=== PATIENT | male | born 1930 | race Caucasian/White ===

== ENCOUNTER 2017-04-06 09:38 | Emergency (ER) | payer MEDICARE, BC ==
[~2017-04-06] VITALS: Ht 175.3 cm; Wt 78.6 kg
[~2017-04-06 09:38] MED LIST: ALBU8.5H4 IH; ALPR0.5T8 PO; AMIO200T57 PO; APIX5TAB3 PO; ATOR20TA66 PO; BISA5TAB10 PO; BUDE0.5A11 IH; CARV3.122 PO; CLOP75TA33 PO; DOCU250C4 PO; FLO0.4C PO; FURO-150 PO; GABA-532 PO; GABA100C PO; HYDR-565 PO; IPRA3AMP IH; L.AC460C PO; LEVO750T46 PO; MELA3TAB PO; MIRT45TA PO; NITR0.4T51 SL; PANT-47 PO; POTA10TA15 PO; PRE5T CORPAK; ROFL500T7 PO; TERB250T4 PO
[2017-04-06] MEDS ORDERED: aspirin 81mg tab.chew PO ONE (10:20)
[2017-04-06] MEDS ORDERED: ipratropium/albuterol 3ml nebule NEB ONE (10:35)
[2017-04-06 10:49] LABS: BASOPHILS % (AUTO) 0.3 % (0-1); EOSINOPHILS # (AUTO) 0.1 X10'3 (0-0.9); EOSINOPHILS % (AUTO) 1.3 % (0-6); HEMATOCRIT 41.3 % (42.0-52.0); HEMOGLOBIN 13.4 g/dl (14.0-17.9); LYMPHOCYTES # (AUTO) 1.7 X10'3 (1.1-4.8); LYMPHOCYTES % (AUTO) 22.4 % (21-51); MEAN CORPUSCULAR HEMOGLOBIN 31.1 PG (27.0-31.0); MEAN CORPUSCULAR HGB CONC 32.4 % (33.0-36.5); MEAN PLATELET VOLUME 6.5 FL (7.4-10.4); MONOCYTES # (AUTO) 0.8 X10'3 (0-0.9); MONOCYTES % (AUTO) 11.3 % (2-12); NEUTROPHILS # (AUTO) 4.8 X10'3 (1.8-7.7); NEUTROPHILS % (AUTO) 64.7 % (42-75); PLATELET COUNT 274 X10'3 (140-440); RED CELL DISTRIBUTION WIDTH 14.8 % (11.5-14.5); WHITE BLOOD COUNT 7.4 X10'3 (4.5-11.0)
[2017-04-06 11:10] LABS: ALANINE AMINOTRANSFERASE 31 U/L (12-78); ALBUMIN 3.6 G/DL (3.4-5.0); ALBUMIN/GLOBULIN RATIO 1.2 (1.1-1.5); ALKALINE PHOSPHATASE 61 IU/L (46-116); ANION GAP 6 (8-16); ASPARTATE AMINO TRANSFERASE 25 U/L (10-37); BILIRUBIN,TOTAL 0.3 MG/DL (0.1-1.0); BLOOD UREA NITROGEN 10 MG/DL (7-18); BUN/CREATININE RATIO 9.7 (5.4-32.0); CALCIUM 9.1 MG/DL (8.5-10.1); CHLORIDE 110 MMOL/L (99-107); CREATININE 1.03 MG/DL (0.60-1.10); GLUCOSE 119 MG/DL (70-104); MAGNESIUM 1.8 MG/DL (1.5-2.4); SODIUM 147 MMOL/L (135-145); TOTAL CARBON DIOXIDE 31.2 MMOL/L (24-32); TOTAL PROTEIN 6.5 G/DL (6.4-8.2); eGFR 68 ML/MIN
[2017-04-06 11:18] LABS: POTASSIUM 2.8 MMOL/L (3.5-5.1)
[2017-04-06] MEDS ORDERED: potassium Cl 10 mEq/100mL bag IV ONE (11:25)
[2017-04-06] MEDS ORDERED: potassium 10mEq/100ml NS w/LIDOcaine (10mg/bag) IV ONE (11:55)
[2017-04-06] MEDS ORDERED: methylPREDNISolone sod succ 125mg/2ml vial IV ONE (12:15)
[2017-04-06] MEDS ORDERED: METH4TAB3 PO (13:14)
[2017-04-06] MEDS: potassium 10mEq/100ml NS w/LIDOcaine (10mg/bag) IV SCH ×2 (13:18→14:15)
[2017-04-06 14:29] VITALS: BP 136/82
== END 2017-04-06 14:32 | disposition home or self-care (01) ==
LOC: ER 09:38
DX: J44.1 Chronic obstructive pulmonary disease with (acute) exacerbation (principal); I25.10 Atherosclerotic heart disease of native coronary artery without angina pectoris; I11.0 Hypertensive heart disease with heart failure; I50.9 Heart failure, unspecified; I25.2 Old myocardial infarction; I48.91 Unspecified atrial fibrillation; G89.29 Other chronic pain; Z87.442 Personal history of urinary calculi; Z87.01 Personal history of pneumonia (recurrent); Z95.5 Presence of coronary angioplasty implant and graft; Z98.890 Other specified postprocedural states; Z79.899 Other long term (current) drug therapy; Z79.01 Long term (current) use of anticoagulants
CPT/HCPCS: 36415; 71045; 80053; 83735; 83880; 84484; 85025; 87502; 87503; 93005; 94640; 94760; 96361; 96374; 96375; 99285; J2270; J2930; J3480

== ENCOUNTER 2017-05-02 10:12 | Inpatient (IN) | payer MEDICARE, BC ==
[~2017-05-02] VITALS: Ht 177.8 cm; Wt 82.7 kg
[~2017-05-02 10:12] MED LIST changes: +METH4TAB3 PO
[2017-05-02] MEDS ORDERED: ipratropium/albuterol 3ml nebule NEB ONE (10:25)
[2017-05-02 10:45] LABS: BASOPHILS % (AUTO) 0.3 % (0-1); EOSINOPHILS # (AUTO) 0.2 X10'3 (0-0.9); EOSINOPHILS % (AUTO) 2.2 % (0-6); HEMATOCRIT 37.9 % (42.0-52.0); HEMOGLOBIN 12.8 g/dl (14.0-17.9); LYMPHOCYTES % (AUTO) 11.9 % (21-51); MEAN CORPUSCULAR HEMOGLOBIN 31.8 PG (27.0-31.0); MEAN CORPUSCULAR HGB CONC 33.9 % (33.0-36.5); MEAN CORPUSCULAR VOLUME 93.8 FL (78-98); MEAN PLATELET VOLUME 6.7 FL (7.4-10.4); MONOCYTES # (AUTO) 0.7 X10'3 (0-0.9); MONOCYTES % (AUTO) 7.9 % (2-12); NEUTROPHILS # (AUTO) 6.8 X10'3 (1.8-7.7); NEUTROPHILS % (AUTO) 77.7 % (42-75); PLATELET COUNT 256 X10'3 (140-440); RED BLOOD COUNT 4.03 X10'6 (4.70-6.10); RED CELL DISTRIBUTION WIDTH 15.1 % (11.5-14.5); WHITE BLOOD COUNT 8.8 X10'3 (4.5-11.0)
[2017-05-02 10:55] LABS: PARTIAL THROMBOPLASTIN TIME 25 SECONDS (22-32); PROTHROMBIN TIME 10.5 SECONDS (9.0-12.0)
[2017-05-02 11:08] LABS: ALANINE AMINOTRANSFERASE 19 U/L (12-78); ALBUMIN 3.4 G/DL (3.4-5.0); ALBUMIN/GLOBULIN RATIO 1.2 (1.1-1.5); ALKALINE PHOSPHATASE 58 IU/L (46-116); ANION GAP 7 (8-16); ASPARTATE AMINO TRANSFERASE 8 U/L (10-37); BILIRUBIN,TOTAL 0.4 MG/DL (0.1-1.0); BLOOD UREA NITROGEN 11 MG/DL (7-18); CALCIUM 8.3 MG/DL (8.5-10.1); CHLORIDE 113 MMOL/L (99-107); GLUCOSE 138 MG/DL (70-104); SODIUM 149 MMOL/L (135-145); TOTAL CARBON DIOXIDE 29.4 MMOL/L (24-32); TOTAL PROTEIN 6.2 G/DL (6.4-8.2); eGFR 71 ML/MIN
[2017-05-02 11:13] LABS: POTASSIUM 2.8 MMOL/L (3.5-5.1)
[2017-05-02] MEDS ORDERED: potassium Cl oral solution 20 MEQ/15 ML PO ONE (11:40)
[2017-05-02] MEDS ORDERED: methylPREDNISolone sod succ 125mg/2ml vial IV ONE (12:05)
[2017-05-02] MEDS ORDERED: levoFLOXACIN-Levaquin 500mg/D5 100 ML IV ONE (12:05)
[2017-05-02] MEDS ORDERED: docusate sod 250mg capsule PO PRN (12:30)
[2017-05-02] MEDS ORDERED: nitroGLYCERIN 0.4mg SUBLingual tab SL PRN (12:30)
[2017-05-02] MEDS ORDERED: bisacodyl 5mg tablet.DR PO PRN (12:30)
[2017-05-02] MEDS ORDERED: albuterol 2.5 MG/3 ML nebule NEB PRN (12:30)
[2017-05-02] MEDS ORDERED: ALPRAZolam 0.5mg tablet PO PRN (12:30)
[2017-05-02] MEDS: furosemide 20 MG/2 ML vial IV SCH (14:23)
[2017-05-02] MEDS: methylPREDNISolone sod succ 125mg/2ml vial IV SCH ×2 (14:25→22:00)
[2017-05-02] MEDS: ipratropium/albuterol 3ml nebule IH SCH ×3 (14:32→19:00)
[2017-05-02] MEDS: HYDROcodone/acetaminophen 10/325mg tab PO PRN (15:22)
[2017-05-02] MEDS ORDERED: HYDROmorphone 1 mg/ml syringe IV PRN (17:35)
[2017-05-02] MEDS ORDERED: magnesium hydroxide 30ml (MOM) UD suspension PO PRN (17:35)
[2017-05-02] MEDS ORDERED: acetaminophen 325mg tablet PO PRN ×2 (17:35)
[2017-05-02] MEDS ORDERED: morphine 2 MG/ML inj. syringe IV PRN (17:35)
[2017-05-02] MEDS ORDERED: HYDROcodone/acetaminophen 5mg/325mg tablet PO PRN (17:35)
[2017-05-02] MEDS ORDERED: ondansetron/PF 4mg/2ml inj IV PRN (17:35)
[2017-05-02] MEDS: pantoprazole 40mg Tablet.DR PO SCH (18:21)
[2017-05-02] MEDS: HYDROmorphone 2mg/ml vial IV PRN ×2 (18:21→23:04)
[2017-05-02] MEDS ORDERED: non-formulary drug (Mirtazapine (Remeron) 1 TAB) PO SCH (21:00)
[2017-05-02] MEDS: mirtazapine 15mg tablet PO SCH (21:58)
[2017-05-02] MEDS: gabapentin 300mg capsule PO SCH (21:59)
[2017-05-02] MEDS: atorvastatin 20mg tablet PO SCH (21:59)
[2017-05-02] MEDS: Melatonin 3mg tablet PO SCH (21:59)
[2017-05-02] MEDS: apixaban 5mg tablet PO SCH (21:59)
[2017-05-02] MEDS: tamsulosin 0.4mg capsule PO SCH (21:59)
[2017-05-02] MEDS: carVEDilol 3.125mg tablet PO SCH (22:00)
[2017-05-02 23:10] VITALS: BP 130/75
[2017-05-02] MEDS: terbinafine 250mg tablet PO SCH (23:50)
[2017-05-02] MEDS: budesonide 0.5mg/2ml UD nebule IH SCH ×2 (23:51→23:52)
[2017-05-03] MEDS: temazepam 15mg capsule PO PRN (00:11)
[2017-05-03] MEDS: methylPREDNISolone sod succ 125mg/2ml vial IV SCH ×4 (02:18→20:31)
[2017-05-03] MEDS: HYDROmorphone 2mg/ml vial IV PRN ×5 (03:16→20:32)
[2017-05-03 06:30] VITALS: BP 141/82
[2017-05-03 06:44] LABS: BASOPHILS % (AUTO) 0 % (0-1); EOSINOPHILS # (AUTO) 0.2 X10'3 (0-0.9); EOSINOPHILS % (AUTO) 1.5 % (0-6); HEMATOCRIT 38.4 % (42.0-52.0); HEMOGLOBIN 12.7 g/dl (14.0-17.9); LYMPHOCYTES # (AUTO) 0.4 X10'3 (1.1-4.8); LYMPHOCYTES % (AUTO) 3.2 % (21-51); MEAN CORPUSCULAR HEMOGLOBIN 31.4 PG (27.0-31.0); MEAN CORPUSCULAR VOLUME 94.9 FL (78-98); MONOCYTES # (AUTO) 0.2 X10'3 (0-0.9); MONOCYTES % (AUTO) 1.6 % (2-12); NEUTROPHILS # (AUTO) 11.5 X10'3 (1.8-7.7); NEUTROPHILS % (AUTO) 93.7 % (42-75); PLATELET COUNT 257 X10'3 (140-440); RED BLOOD COUNT 4.05 X10'6 (4.70-6.10); RED CELL DISTRIBUTION WIDTH 15.1 % (11.5-14.5); WHITE BLOOD COUNT 12.3 X10'3 (4.5-11.0)
[2017-05-03] MEDS: budesonide 0.5mg/2ml UD nebule IH SCH ×2 (06:51→19:28)
[2017-05-03] MEDS: ipratropium/albuterol 3ml nebule IH SCH ×4 (06:51→19:28)
[2017-05-03 07:07] LABS: ALBUMIN 3.2 G/DL (3.4-5.0); ANION GAP 5 (8-16); BLOOD UREA NITROGEN 15 MG/DL (7-18); BUN/CREATININE RATIO 16.7 (5.4-32.0); CALCIUM 8.7 MG/DL (8.5-10.1); CHLORIDE 110 MMOL/L (99-107); GLUCOSE 138 MG/DL (70-104); SODIUM 146 MMOL/L (135-145); TOTAL CARBON DIOXIDE 30.9 MMOL/L (24-32); eGFR 80 ML/MIN
[2017-05-03] MEDS: gabapentin 100mg capsule PO SCH (07:41)
[2017-05-03] MEDS: amiodarone 200mg tablet PO SCH (07:41)
[2017-05-03] MEDS: furosemide 20 MG/2 ML vial IV SCH (07:41)
[2017-05-03] MEDS: clopidogrel 75mg tablet PO SCH (07:41)
[2017-05-03] MEDS: pantoprazole 40mg Tablet.DR PO SCH ×2 (07:41→16:28)
[2017-05-03] MEDS: terbinafine 250mg tablet PO SCH (07:41)
[2017-05-03] MEDS: potassium chloride 10mEq ER tablet PO SCH (07:42)
[2017-05-03] MEDS: apixaban 5mg tablet PO SCH ×2 (07:42→20:30)
[2017-05-03] MEDS: carVEDilol 3.125mg tablet PO SCH ×2 (07:42→20:30)
[2017-05-03] MEDS ORDERED: non-formulary drug (Potassium Chloride 1 TAB) PO SCH (08:00)
[2017-05-03 10:03] VITALS: BP 114/58
[2017-05-03 18:30] VITALS: BP 130/82
[2017-05-03] MEDS: Melatonin 3mg tablet PO SCH (20:30)
[2017-05-03] MEDS: gabapentin 300mg capsule PO SCH (20:30)
[2017-05-03] MEDS: tamsulosin 0.4mg capsule PO SCH (20:30)
[2017-05-03] MEDS: mirtazapine 15mg tablet PO SCH (20:30)
[2017-05-03] MEDS: atorvastatin 20mg tablet PO SCH (20:31)
[2017-05-03] MEDS: HYDROcodone/acetaminophen 10/325mg tab PO PRN (22:11)
[2017-05-03 22:30] VITALS: BP 136/80
[2017-05-04] MEDS: morphine 5 MG/ML injection IV PRN ×5 (00:10→20:39)
[2017-05-04] MEDS: temazepam 15mg capsule PO PRN ×2 (00:13→23:44)
[2017-05-04] MEDS: methylPREDNISolone sod succ 125mg/2ml vial IV SCH ×4 (02:18→20:39)
[2017-05-04] MEDS: HYDROcodone/acetaminophen 10/325mg tab PO PRN ×5 (02:19→23:45)
[2017-05-04 05:00] VITALS: BP 114/66
[2017-05-04 05:51] LABS: BASOPHILS % (AUTO) 0 % (0-1); EOSINOPHILS # (AUTO) 0.3 X10'3 (0-0.9); EOSINOPHILS % (AUTO) 1.6 % (0-6); HEMATOCRIT 38.1 % (42.0-52.0); HEMOGLOBIN 12.7 g/dl (14.0-17.9); LYMPHOCYTES # (AUTO) 0.3 X10'3 (1.1-4.8); LYMPHOCYTES % (AUTO) 1.9 % (21-51); MEAN CORPUSCULAR HEMOGLOBIN 31.9 PG (27.0-31.0); MEAN CORPUSCULAR HGB CONC 33.3 % (33.0-36.5); MEAN CORPUSCULAR VOLUME 95.5 FL (78-98); MEAN PLATELET VOLUME 7.2 FL (7.4-10.4); MONOCYTES # (AUTO) 0.5 X10'3 (0-0.9); MONOCYTES % (AUTO) 3.2 % (2-12); NEUTROPHILS # (AUTO) 15.9 X10'3 (1.8-7.7); NEUTROPHILS % (AUTO) 93.3 % (42-75); PLATELET COUNT 256 X10'3 (140-440); RED BLOOD COUNT 3.98 X10'6 (4.70-6.10); RED CELL DISTRIBUTION WIDTH 15.3 % (11.5-14.5)
[2017-05-04 06:06] LABS: ALBUMIN 3.1 G/DL (3.4-5.0); ANION GAP 7 (8-16); BLOOD UREA NITROGEN 27 MG/DL (7-18); BUN/CREATININE RATIO 24.5 (5.4-32.0); CHLORIDE 108 MMOL/L (99-107); GLUCOSE 158 MG/DL (70-104); POTASSIUM 3.9 MMOL/L (3.5-5.1); SODIUM 145 MMOL/L (135-145); TOTAL CARBON DIOXIDE 30.3 MMOL/L (24-32); eGFR 63 ML/MIN
[2017-05-04] MEDS: terbinafine 250mg tablet PO SCH (07:46)
[2017-05-04] MEDS: furosemide 20 MG/2 ML vial IV SCH (07:46)
[2017-05-04] MEDS: potassium chloride 10mEq ER tablet PO SCH (07:46)
[2017-05-04] MEDS: gabapentin 100mg capsule PO SCH (07:46)
[2017-05-04] MEDS: pantoprazole 40mg Tablet.DR PO SCH ×2 (07:46→16:30)
[2017-05-04] MEDS: budesonide 0.5mg/2ml UD nebule IH SCH ×2 (07:59→20:13)
[2017-05-04] MEDS: ipratropium/albuterol 3ml nebule IH SCH ×4 (08:00→20:18)
[2017-05-04 09:42] VITALS: BP 116/77
[2017-05-04] MEDS: apixaban 5mg tablet PO SCH ×2 (14:19→20:38)
[2017-05-04] MEDS: carVEDilol 3.125mg tablet PO SCH ×2 (14:19→20:38)
[2017-05-04] MEDS: amiodarone 200mg tablet PO SCH (14:19)
[2017-05-04] MEDS: clopidogrel 75mg tablet PO SCH (14:19)
[2017-05-04 18:00] VITALS: BP 137/82
[2017-05-04] MEDS: atorvastatin 20mg tablet PO SCH (20:37)
[2017-05-04] MEDS: mirtazapine 15mg tablet PO SCH (20:38)
[2017-05-04] MEDS: tamsulosin 0.4mg capsule PO SCH (20:38)
[2017-05-04] MEDS: gabapentin 300mg capsule PO SCH (20:38)
[2017-05-04] MEDS: Melatonin 3mg tablet PO SCH (20:38)
[2017-05-04 22:00] VITALS: BP 115/71
[2017-05-05] MEDS: methylPREDNISolone sod succ 125mg/2ml vial IV SCH ×4 (02:03→19:34)
[2017-05-05] MEDS: mag hydrox/Alum hydrox/simeth 30ml oral suspension PO PRN ×3 (02:13→19:33)
[2017-05-05] MEDS: morphine 5 MG/ML injection IV PRN ×4 (02:13→14:11)
[2017-05-05] MEDS: HYDROcodone/acetaminophen 10/325mg tab PO PRN (04:57)
[2017-05-05 05:00] VITALS: BP 125/77
[2017-05-05 06:30] LABS: BASOPHILS % (AUTO) 0 % (0-1); EOSINOPHILS # (AUTO) 0.3 X10'3 (0-0.9); EOSINOPHILS % (AUTO) 1.5 % (0-6); HEMATOCRIT 38.2 % (42.0-52.0); HEMOGLOBIN 12.8 g/dl (14.0-17.9); LYMPHOCYTES # (AUTO) 0.3 X10'3 (1.1-4.8); MEAN CORPUSCULAR HEMOGLOBIN 32.1 PG (27.0-31.0); MEAN CORPUSCULAR HGB CONC 33.7 % (33.0-36.5); MEAN CORPUSCULAR VOLUME 95.3 FL (78-98); MEAN PLATELET VOLUME 7.2 FL (7.4-10.4); MONOCYTES # (AUTO) 0.6 X10'3 (0-0.9); MONOCYTES % (AUTO) 3.4 % (2-12); NEUTROPHILS # (AUTO) 15.2 X10'3 (1.8-7.7); NEUTROPHILS % (AUTO) 93.1 % (42-75); PLATELET COUNT 248 X10'3 (140-440); RED BLOOD COUNT 4.01 X10'6 (4.70-6.10); RED CELL DISTRIBUTION WIDTH 15.4 % (11.5-14.5); WHITE BLOOD COUNT 16.4 X10'3 (4.5-11.0)
[2017-05-05 07:08] LABS: ALBUMIN 3.2 G/DL (3.4-5.0); ANION GAP 7 (8-16); BLOOD UREA NITROGEN 31 MG/DL (7-18); BUN/CREATININE RATIO 25.8 (5.4-32.0); CALCIUM 8.9 MG/DL (8.5-10.1); CHLORIDE 110 MMOL/L (99-107); GLUCOSE 118 MG/DL (70-104); POTASSIUM 4.3 MMOL/L (3.5-5.1); SODIUM 148 MMOL/L (135-145); TOTAL CARBON DIOXIDE 30.9 MMOL/L (24-32); eGFR 57 ML/MIN
[2017-05-05] MEDS: budesonide 0.5mg/2ml UD nebule IH SCH ×2 (07:46→20:09)
[2017-05-05] MEDS: ipratropium/albuterol 3ml nebule IH SCH ×4 (07:46→20:09)
[2017-05-05] MEDS: furosemide 20 MG/2 ML vial IV SCH (09:04)
[2017-05-05] MEDS: pantoprazole 40mg Tablet.DR PO SCH ×2 (09:04→17:49)
[2017-05-05] MEDS: terbinafine 250mg tablet PO SCH (09:05)
[2017-05-05] MEDS: clopidogrel 75mg tablet PO SCH (09:05)
[2017-05-05] MEDS: potassium chloride 10mEq ER tablet PO SCH (09:05)
[2017-05-05] MEDS: gabapentin 100mg capsule PO SCH (09:05)
[2017-05-05] MEDS: apixaban 5mg tablet PO SCH ×2 (09:05→19:34)
[2017-05-05] MEDS: amiodarone 200mg tablet PO SCH (09:05)
[2017-05-05] MEDS: carVEDilol 3.125mg tablet PO SCH ×2 (09:05→19:34)
[2017-05-05 10:00] VITALS: BP 148/86
[2017-05-05] MEDS: morphine 2 MG/ML inj. syringe IV PRN ×2 (17:50→22:28)
[2017-05-05 18:00] VITALS: BP 128/71
[2017-05-05] MEDS: sotalol 80mg tablet PO SCH (19:34)
[2017-05-05] MEDS: Melatonin 3mg tablet PO SCH (21:04)
[2017-05-05] MEDS: atorvastatin 20mg tablet PO SCH (21:04)
[2017-05-05] MEDS: mirtazapine 15mg tablet PO SCH (21:04)
[2017-05-05] MEDS: tamsulosin 0.4mg capsule PO SCH (21:04)
[2017-05-05] MEDS: gabapentin 300mg capsule PO SCH (21:04)
[2017-05-05 22:00] VITALS: BP 143/86
[2017-05-05] MEDS: temazepam 15mg capsule PO PRN (22:32)
[2017-05-06] MEDS: methylPREDNISolone sod succ 125mg/2ml vial IV SCH ×3 (02:18→13:44)
[2017-05-06] MEDS: morphine 2 MG/ML inj. syringe IV PRN ×3 (02:22→11:58)
[2017-05-06 06:20] LABS: BASOPHILS % (AUTO) 0 % (0-1); EOSINOPHILS # (AUTO) 0.2 X10'3 (0-0.9); EOSINOPHILS % (AUTO) 1.6 % (0-6); HEMATOCRIT 37.2 % (42.0-52.0); HEMOGLOBIN 12.5 g/dl (14.0-17.9); LYMPHOCYTES # (AUTO) 0.2 X10'3 (1.1-4.8); LYMPHOCYTES % (AUTO) 1.6 % (21-51); MEAN CORPUSCULAR HEMOGLOBIN 31.9 PG (27.0-31.0); MEAN CORPUSCULAR HGB CONC 33.7 % (33.0-36.5); MEAN CORPUSCULAR VOLUME 94.8 FL (78-98); MEAN PLATELET VOLUME 7.3 FL (7.4-10.4); MONOCYTES # (AUTO) 0.6 X10'3 (0-0.9); MONOCYTES % (AUTO) 4.4 % (2-12); NEUTROPHILS # (AUTO) 12.8 X10'3 (1.8-7.7); NEUTROPHILS % (AUTO) 92.4 % (42-75); PLATELET COUNT 223 X10'3 (140-440); RED BLOOD COUNT 3.92 X10'6 (4.70-6.10); RED CELL DISTRIBUTION WIDTH 15.4 % (11.5-14.5); WHITE BLOOD COUNT 13.9 X10'3 (4.5-11.0)
[2017-05-06 07:10] VITALS: BP 143/86
[2017-05-06 07:36] LABS: ANION GAP 8 (8-16); BLOOD UREA NITROGEN 34 MG/DL (7-18); BUN/CREATININE RATIO 30.9 (5.4-32.0); CALCIUM 8.6 MG/DL (8.5-10.1); CHLORIDE 108 MMOL/L (99-107); GLUCOSE 120 MG/DL (70-104); POTASSIUM 4.3 MMOL/L (3.5-5.1); SODIUM 146 MMOL/L (135-145); TOTAL CARBON DIOXIDE 30.1 MMOL/L (24-32); eGFR 63 ML/MIN
[2017-05-06] MEDS: pantoprazole 40mg Tablet.DR PO SCH (07:59)
[2017-05-06] MEDS: gabapentin 100mg capsule PO SCH (07:59)
[2017-05-06] MEDS: terbinafine 250mg tablet PO SCH (07:59)
[2017-05-06] MEDS: clopidogrel 75mg tablet PO SCH (07:59)
[2017-05-06] MEDS: apixaban 5mg tablet PO SCH (07:59)
[2017-05-06] MEDS: potassium chloride 10mEq ER tablet PO SCH (07:59)
[2017-05-06] MEDS ORDERED: cefTRIAXone 1g/NS 100ml IVPB 100 ML IV SCH (08:00)
[2017-05-06] MEDS: ipratropium/albuterol 3ml nebule IH SCH ×2 (08:22→12:00)
[2017-05-06] MEDS: budesonide 0.5mg/2ml UD nebule IH SCH (08:22)
[2017-05-06] MEDS: carVEDilol 3.125mg tablet PO SCH (11:04)
[2017-05-06] MEDS: sotalol 80mg tablet PO SCH (11:56)
[2017-05-06 12:10] VITALS: BP 125/73
[2017-05-06] MEDS ORDERED: PRED10TA PO (13:02)
[2017-05-06] MEDS ORDERED: LEVO750T21 PO (13:08)
[2017-05-06] MEDS ORDERED: SOTA80TA PO (13:40)
[2017-05-06] MEDS ORDERED: lactobacillus rhamnosus 10,000 MMU CELLS/CAPSULE PO SCH (17:30)
== END 2017-05-06 15:52 | disposition home or self-care (01) | DRG 189 ==
LOC: ER 10:15 → ED HOLD 17:38 → ORTHO 4S 23:10
PROVIDERS: ADMIT Internal Medicine; ATTEND Internal Medicine
DX: J96.21 Acute and chronic respiratory failure with hypoxia (principal); G62.9 Polyneuropathy, unspecified; I11.0 Hypertensive heart disease with heart failure; I48.0 Paroxysmal atrial fibrillation; I49.5 Sick sinus syndrome; J44.0 Chronic obstructive pulmonary disease with (acute) lower respiratory infection; I50.30 Unspecified diastolic (congestive) heart failure; E78.5 Hyperlipidemia, unspecified; J44.1 Chronic obstructive pulmonary disease with (acute) exacerbation; M47.9 Spondylosis, unspecified; J20.9 Acute bronchitis, unspecified; M54.9 Dorsalgia, unspecified; G89.29 Other chronic pain; I25.10 Atherosclerotic heart disease of native coronary artery without angina pectoris; K21.9 Gastro-esophageal reflux disease without esophagitis; N40.0 Benign prostatic hyperplasia without lower urinary tract symptoms; F17.210 Nicotine dependence, cigarettes, uncomplicated; Z79.01 Long term (current) use of anticoagulants; Z79.02 Long term (current) use of antithrombotics/antiplatelets; Z79.899 Other long term (current) drug therapy; Z86.73 Personal history of transient ischemic attack (TIA), and cerebral infarction without residual deficits; Z87.442 Personal history of urinary calculi; Z95.5 Presence of coronary angioplasty implant and graft; Z83.3 Family history of diabetes mellitus; Z82.3 Family history of stroke
CPT/HCPCS: 36415; 71045; 80048; 80053; 83880; 84484; 85025; 85610; 85730; 87070; 87502; 87503; 93005; 94640; 94760; 96365; 96375; 97110; 97116; 97162; 99285; J0696; J1170; J1940; J1956; J2270; J2930; J7626

== ENCOUNTER 2017-05-25 08:59 | Inpatient (IN) | payer MEDICARE, BC ==
[~2017-05-25] VITALS: Ht 175.3 cm; Wt 82.4 kg
[~2017-05-25 08:59] MED LIST changes: -AMIO200T57 PO; -CARV3.122 PO; -LEVO750T46 PO; -MELA3TAB PO; -PRE5T CORPAK; +PRED10TA PO; +SOTA80TA PO
[2017-05-25] MEDS ORDERED: albuterol 2.5 MG/3 ML nebule CONTNEB PRN (09:05)
[2017-05-25] MEDS ORDERED: magnesium 2GM in 50ml NS 50 ML IV ONE (09:05)
[2017-05-25] MEDS ORDERED: ipratropium 0.5 MG/2.5ML nebule IH ONE (09:05)
[2017-05-25] MEDS ORDERED: methylPREDNISolone sod succ 125mg/2ml vial IV ONE ×2 (09:05→20:00)
[2017-05-25] MEDS ORDERED: CefTRIAXone 2gm/NS 100ml IVPB 100 ML IV ONE (09:05)
[2017-05-25 09:28] LABS: BASOPHILS % (AUTO) 0.1 % (0-1); EOSINOPHILS # (AUTO) 0.2 X10'3 (0-0.9); EOSINOPHILS % (AUTO) 2.4 % (0-6); HEMATOCRIT 40.1 % (42.0-52.0); HEMOGLOBIN 13.4 g/dl (14.0-17.9); LYMPHOCYTES # (AUTO) 1.1 X10'3 (1.1-4.8); LYMPHOCYTES % (AUTO) 12.8 % (21-51); MEAN CORPUSCULAR HEMOGLOBIN 32.3 PG (27.0-31.0); MEAN CORPUSCULAR HGB CONC 33.4 % (33.0-36.5); MEAN CORPUSCULAR VOLUME 96.7 FL (78-98); MEAN PLATELET VOLUME 6.9 FL (7.4-10.4); MONOCYTES # (AUTO) 0.7 X10'3 (0-0.9); NEUTROPHILS # (AUTO) 6.5 X10'3 (1.8-7.7); NEUTROPHILS % (AUTO) 76.7 % (42-75); PLATELET COUNT 234 X10'3 (140-440); RED BLOOD COUNT 4.15 X10'6 (4.70-6.10); RED CELL DISTRIBUTION WIDTH 15.7 % (11.5-14.5); WHITE BLOOD COUNT 8.4 X10'3 (4.5-11.0)
[2017-05-25] MEDS ORDERED: LORazepam 2 mg/ml vial IV ONE (09:30)
[2017-05-25 09:40] LABS: PARTIAL THROMBOPLASTIN TIME 25 SECONDS (22-32); PROTHROMBIN TIME 9.9 SECONDS (9.0-12.0)
[2017-05-25] MEDS: morphine 2 MG/ML inj. syringe IV PRN ×3 (09:52→12:12)
[2017-05-25 09:54] LABS: ALANINE AMINOTRANSFERASE 37 U/L (12-78); ALBUMIN 3.4 G/DL (3.4-5.0); ALKALINE PHOSPHATASE 80 IU/L (46-116); ANION GAP 6 (8-16); ASPARTATE AMINO TRANSFERASE 11 U/L (10-37); BILIRUBIN,TOTAL 0.5 MG/DL (0.1-1.0); BLOOD UREA NITROGEN 10 MG/DL (7-18); BUN/CREATININE RATIO 10.8 (5.4-32.0); CALCIUM 9.2 MG/DL (8.5-10.1); CHLORIDE 113 MMOL/L (99-107); CREATININE 0.93 MG/DL (0.60-1.10); GLUCOSE 87 MG/DL (70-104); POTASSIUM 3.5 MMOL/L (3.5-5.1); SODIUM 152 MMOL/L (135-145); TOTAL CARBON DIOXIDE 32.7 MMOL/L (24-32); TOTAL PROTEIN 6.7 G/DL (6.4-8.2); eGFR 77 ML/MIN
[2017-05-25 10:54] LABS: CLARITY,URINE CLEAR (Clear); COLOR,URINE YELLOW (Yellow); GLUCOSE, URINE NEGATIVE (Neg); KETONES,URINE NEGATIVE (Neg); LEUKOCYTE ESTERASE ,URINE NEGATIVE (Neg); NITRITES, URINE NEGATIVE (Neg); OCCULT BLOOD,URINE SMALL (Neg); PH,URINE 5.5 (4.8-8.0); PROTEIN,URINE NEGATIVE (Neg); UROBILINOGEN,URINE 0.2 E.U/dL (0.2-1.0)
[2017-05-25 11:00] LABS: UA COLLECTION TYPE URINAL
[2017-05-25 11:02] LABS: BACTERIA,URINE FEW /HPF (Neg); COARSE GRANULAR CAST 0-3 /LPF (NEGATIVE); MUCUS STRANDS MODERATE /LPF (Neg); RENAL CELLS, URINE FEW /HPF; SQUAMOUS EPITHELIAL CELL,UR FEW /LPF (FEW); WBC,URINE 0-4 /HPF (0-4)
[2017-05-25 14:10] LABS: ABG BASE EXCESS 0.4 mmol/L (-2.0-3.0); ABG HCO3 25.6 mmol/L (22.0-26.0); ABG OXYGEN SATURATION 96.4 % (95-98); ABG PCO2 (T) 43.2 mmHg (35.0-48.0); ALLEN'S TEST Positive; FCOHb 0.4 % (0.5-1.5); FLOW 2 L/min; FMetHb 0.2 % (0.3-1.12); FO2Hb 95.8 % (94-100); TOTAL HEMOGLOBIN 13.3 G/dl (14.0-18.0)
[2017-05-25] MEDS ORDERED: magnesium hydroxide 30ml (MOM) UD suspension PO PRN (14:35)
[2017-05-25] MEDS ORDERED: mag hydrox/Alum hydrox/simeth 30ml oral suspension PO PRN (14:35)
[2017-05-25] MEDS ORDERED: potassium Cl 40MEQ/NS 500ml 500 ML IV PRN ×2 (14:35)
[2017-05-25] MEDS ORDERED: guaiFENesin/codeine phos 10ml UD oral syrup PO PRN (14:35)
[2017-05-25] MEDS ORDERED: acetaminophen 325mg tablet PO PRN (14:35)
[2017-05-25] MEDS ORDERED: magnesium 4gm in 100ml NS 100 ML IV PRN (14:35)
[2017-05-25] MEDS ORDERED: magnesium 2GM in 50ml NS 50 ML IV PRN (14:35)
[2017-05-25] MEDS ORDERED: ondansetron/PF 4mg/2ml inj IV PRN (14:35)
[2017-05-25] MEDS ORDERED: HYDROcodone/acetaminophen 5mg/325mg tablet PO PRN (14:35)
[2017-05-25] MEDS ORDERED: potassium Cl 20 mEq SR tablet PO PRN (14:35)
[2017-05-25] MEDS ORDERED: magnesium Cl slow-release 64mg tablet PO PRN (14:35)
[2017-05-25] MEDS ORDERED: docusate sod 250mg capsule PO PRN (14:45)
[2017-05-25] MEDS ORDERED: bisacodyl 5mg tablet.DR PO PRN (14:45)
[2017-05-25] MEDS ORDERED: nitroGLYCERIN 0.4mg SUBLingual tab SL PRN (14:45)
[2017-05-25] MEDS ORDERED: albuterol 2.5 MG/3 ML nebule NEB PRN (14:50)
[2017-05-25] MEDS: sodium chloride 0.45% 1,000 ML IV SCH ×2 (15:32→21:41)
[2017-05-25] MEDS: ipratropium/albuterol 3ml nebule IH SCH ×2 (16:53→21:28)
[2017-05-25] MEDS ORDERED: doxycycline hyclate 100mg tablet.DR PO SCH (17:30)
[2017-05-25 18:20] VITALS: BP 118/65
[2017-05-25] MEDS: pantoprazole 40mg Tablet.DR PO SCH (18:23)
[2017-05-25] MEDS: lactobacillus rhamnosus 10,000 MMU CELLS/CAPSULE PO SCH (18:23)
[2017-05-25] MEDS: HYDROmorphone inj. 0.5 MG/0.5 ML DISP.SYRIN IV PRN (18:25)
[2017-05-25] MEDS: HYDROcodone/acetaminophen 10/325mg tab PO PRN (21:01)
[2017-05-25] MEDS: atorvastatin 20mg tablet PO SCH (21:02)
[2017-05-25] MEDS: tamsulosin 0.4mg capsule PO SCH (21:02)
[2017-05-25] MEDS: mirtazapine 15mg tablet PO SCH (21:02)
[2017-05-25] MEDS: gabapentin 300mg capsule PO SCH (21:02)
[2017-05-25] MEDS: roflumilast 500mcg tablet PO SCH (21:41)
[2017-05-25] MEDS: apixaban 5mg tablet PO SCH (21:42)
[2017-05-25] MEDS: ALPRAZolam 0.5mg tablet PO PRN (21:53)
[2017-05-26] MEDS: HYDROmorphone inj. 0.5 MG/0.5 ML DISP.SYRIN IV PRN ×6 (00:14→23:37)
[2017-05-26 00:30] VITALS: BP 133/69
[2017-05-26] MEDS ORDERED: piperacillin-tazo 2.25gm/50ml 50 ML IV ONE (02:46)
[2017-05-26] MEDS: HYDROcodone/acetaminophen 10/325mg tab PO PRN ×2 (02:48→21:13)
[2017-05-26] MEDS ORDERED: vancomycin/NS 1 GM ADD-VANTAGE 250 ML IV SCH (04:00)
[2017-05-26] MEDS: piperacillin-tazo 2.25gm/50ml 50 ML IV SCH ×2 (04:12→12:15)
[2017-05-26] MEDS: sodium chloride 0.45% 1,000 ML IV SCH ×4 (04:17→23:36)
[2017-05-26 05:30] LABS: BASOPHILS % (AUTO) 0 % (0-1); EOSINOPHILS # (AUTO) 0.1 X10'3 (0-0.9); EOSINOPHILS % (AUTO) 1.2 % (0-6); HEMOGLOBIN 11.2 g/dl (14.0-17.9); LYMPHOCYTES # (AUTO) 0.4 X10'3 (1.1-4.8); LYMPHOCYTES % (AUTO) 6.3 % (21-51); MEAN CORPUSCULAR HEMOGLOBIN 31.9 PG (27.0-31.0); MEAN CORPUSCULAR HGB CONC 33.9 % (33.0-36.5); MEAN CORPUSCULAR VOLUME 94.1 FL (78-98); MEAN PLATELET VOLUME 7.5 FL (7.4-10.4); MONOCYTES # (AUTO) 0.1 X10'3 (0-0.9); MONOCYTES % (AUTO) 1.6 % (2-12); NEUTROPHILS # (AUTO) 5.9 X10'3 (1.8-7.7); NEUTROPHILS % (AUTO) 90.9 % (42-75); PLATELET COUNT 211 X10'3 (140-440); WHITE BLOOD COUNT 6.5 X10'3 (4.5-11.0)
[2017-05-26 06:20] LABS: ALBUMIN 2.7 G/DL (3.4-5.0); ANION GAP 7 (8-16); BLOOD UREA NITROGEN 15 MG/DL (7-18); BUN/CREATININE RATIO 18.8 (5.4-32.0); CALCIUM 8.7 MG/DL (8.5-10.1); CHLORIDE 110 MMOL/L (99-107); GLUCOSE 120 MG/DL (70-104); PHOSPHORUS 2.8 MG/DL (2.3-4.5); POTASSIUM 3.9 MMOL/L (3.5-5.1); SODIUM 145 MMOL/L (135-145); TOTAL CARBON DIOXIDE 27.7 MMOL/L (24-32); eGFR > 90 ML/MIN
[2017-05-26] MEDS: ipratropium/albuterol 3ml nebule IH SCH ×4 (07:03→21:00)
[2017-05-26] MEDS: K and/or MAG REPLACEMENT MC SCH (07:47)
[2017-05-26 07:52] VITALS: BP 149/77
[2017-05-26] MEDS: gabapentin 100mg capsule PO SCH (07:55)
[2017-05-26] MEDS: pantoprazole 40mg Tablet.DR PO SCH ×2 (07:55→15:31)
[2017-05-26] MEDS: lactobacillus rhamnosus 10,000 MMU CELLS/CAPSULE PO SCH ×2 (07:55→15:32)
[2017-05-26] MEDS: apixaban 5mg tablet PO SCH ×2 (07:56→20:21)
[2017-05-26] MEDS: clopidogrel 75mg tablet PO SCH (07:56)
[2017-05-26] MEDS: furosemide 20MG tablet PO SCH (07:56)
[2017-05-26] MEDS ORDERED: clindamycin 600mg/D5W 50ml 50 ML IV SCH (08:00)
[2017-05-26 11:30] VITALS: BP 135/74
[2017-05-26] MEDS ORDERED: vancomycin inj 1,250 MG in normal saline 250ml IV soln 250 ML IV SCH (16:00)
[2017-05-26 19:00] VITALS: BP 115/62
[2017-05-26] MEDS: doxycycline hyclate 100mg tablet.DR PO SCH (19:13)
[2017-05-26] MEDS: piperacillin/tazo 3.375gm/50ml 50 ML IV SCH (20:22)
[2017-05-26] MEDS: mirtazapine 15mg tablet PO SCH (21:05)
[2017-05-26] MEDS: atorvastatin 20mg tablet PO SCH (21:05)
[2017-05-26] MEDS: gabapentin 300mg capsule PO SCH (21:05)
[2017-05-26] MEDS: roflumilast 500mcg tablet PO SCH (21:05)
[2017-05-26] MEDS: tamsulosin 0.4mg capsule PO SCH (21:05)
[2017-05-26] MEDS: ALPRAZolam 0.5mg tablet PO PRN (21:13)
[2017-05-27] VITALS: BP 108/59
[2017-05-27] MEDS: piperacillin/tazo 3.375gm/50ml 50 ML IV SCH ×4 (02:25→20:34)
[2017-05-27] MEDS: vancomycin inj 1,250 MG in normal saline 250ml IV soln 250 ML IV SCH ×2 (03:39→15:52)
[2017-05-27] MEDS: HYDROmorphone inj. 0.5 MG/0.5 ML DISP.SYRIN IV PRN ×4 (03:39→20:33)
[2017-05-27 05:58] LABS: BASOPHILS % (AUTO) 0.2 % (0-1); EOSINOPHILS # (AUTO) 0.1 X10'3 (0-0.9); EOSINOPHILS % (AUTO) 1.8 % (0-6); HEMATOCRIT 32.4 % (42.0-52.0); LYMPHOCYTES % (AUTO) 13.8 % (21-51); MEAN CORPUSCULAR HEMOGLOBIN 32.1 PG (27.0-31.0); MEAN CORPUSCULAR VOLUME 94.5 FL (78-98); MONOCYTES # (AUTO) 0.8 X10'3 (0-0.9); MONOCYTES % (AUTO) 10.7 % (2-12); NEUTROPHILS # (AUTO) 5.5 X10'3 (1.8-7.7); NEUTROPHILS % (AUTO) 73.5 % (42-75); PLATELET COUNT 224 X10'3 (140-440); RED BLOOD COUNT 3.43 X10'6 (4.70-6.10); RED CELL DISTRIBUTION WIDTH 15.6 % (11.5-14.5); WHITE BLOOD COUNT 7.5 X10'3 (4.5-11.0)
[2017-05-27 06:21] LABS: ALBUMIN 2.6 G/DL (3.4-5.0); ANION GAP 8 (8-16); BLOOD UREA NITROGEN 17 MG/DL (7-18); BUN/CREATININE RATIO 18.5 (5.4-32.0); C-REACTIVE PROTEIN 0.42 MG/DL (0.0-0.5); CALCIUM 8.3 MG/DL (8.5-10.1); CHLORIDE 112 MMOL/L (99-107); CREATININE 0.92 MG/DL (0.60-1.10); GLUCOSE 81 MG/DL (70-104); MAGNESIUM 1.9 MG/DL (1.5-2.4); PHOSPHORUS 3.1 MG/DL (2.3-4.5); POTASSIUM 3.1 MMOL/L (3.5-5.1); SODIUM 148 MMOL/L (135-145); TOTAL CARBON DIOXIDE 27.6 MMOL/L (24-32); eGFR 78 ML/MIN
[2017-05-27] MEDS: sodium chloride 0.45% 1,000 ML IV SCH ×3 (06:32→19:52)
[2017-05-27] MEDS: ipratropium/albuterol 3ml nebule IH SCH ×3 (07:05→20:54)
[2017-05-27 07:18] VITALS: BP 127/73
[2017-05-27] MEDS: doxycycline hyclate 100mg tablet.DR PO SCH (07:31)
[2017-05-27] MEDS: clopidogrel 75mg tablet PO SCH (07:31)
[2017-05-27] MEDS: pantoprazole 40mg Tablet.DR PO SCH ×2 (07:31→16:36)
[2017-05-27] MEDS: lactobacillus rhamnosus 10,000 MMU CELLS/CAPSULE PO SCH ×2 (07:31→16:36)
[2017-05-27] MEDS: furosemide 20MG tablet PO SCH (07:31)
[2017-05-27] MEDS: gabapentin 100mg capsule PO SCH (07:32)
[2017-05-27] MEDS: apixaban 5mg tablet PO SCH ×2 (07:32→20:28)
[2017-05-27] MEDS: HYDROcodone/acetaminophen 10/325mg tab PO PRN ×3 (07:32→21:24)
[2017-05-27] MEDS ORDERED: vancomycin/NS 1 GM ADD-VANTAGE 250 ML IV SCH (08:00)
[2017-05-27] MEDS: K and/or MAG REPLACEMENT MC SCH ×2 (08:00→08:40)
[2017-05-27] MEDS ORDERED: magnesium Cl slow-release 64mg tablet PO PRN (08:40)
[2017-05-27] MEDS ORDERED: magnesium 2GM in 50ml NS 50 ML IV PRN (08:40)
[2017-05-27] MEDS ORDERED: potassium Cl 40MEQ/NS 500ml 500 ML IV PRN ×2 (08:40)
[2017-05-27] MEDS ORDERED: magnesium 4gm in 100ml NS 100 ML IV PRN (08:40)
[2017-05-27] MEDS ORDERED: potassium Cl 20 mEq SR tablet PO PRN (08:40)
[2017-05-27] MEDS ORDERED: LORazepam 1 MG tablet PO ONE (11:55)
[2017-05-27 12:04] VITALS: BP 120/72
[2017-05-27] MEDS: potassium Cl 20 mEq SR tablet PO PRN ×3 (12:59→21:28)
[2017-05-27 18:50] VITALS: BP 134/69
[2017-05-27] MEDS: tamsulosin 0.4mg capsule PO SCH (20:28)
[2017-05-27] MEDS: roflumilast 500mcg tablet PO SCH (20:28)
[2017-05-27] MEDS: atorvastatin 20mg tablet PO SCH (20:28)
[2017-05-27] MEDS: gabapentin 300mg capsule PO SCH (20:28)
[2017-05-27] MEDS: mirtazapine 15mg tablet PO SCH (20:29)
[2017-05-27] MEDS: diatr meglu/diatrizoate 30ml oral sol.-(3 dose) bottle PO SCH (22:30)
[2017-05-27] MEDS: pantoprazole 40 MG vial IV SCH (22:45)
[2017-05-28] VITALS: BP 115/62
[2017-05-28] MEDS: HYDROmorphone inj. 0.5 MG/0.5 ML DISP.SYRIN IV PRN ×5 (02:41→20:51)
[2017-05-28] MEDS: piperacillin/tazo 3.375gm/50ml 50 ML IV SCH ×4 (02:41→20:47)
[2017-05-28] MEDS ORDERED: VANCOMYCIN LEVEL IV ONE (03:30)
[2017-05-28] MEDS: HYDROcodone/acetaminophen 10/325mg tab PO PRN ×4 (03:43→22:59)
[2017-05-28 04:00] LABS: BASOPHILS % (AUTO) 0.3 % (0-1); EOSINOPHILS # (AUTO) 0.2 X10'3 (0-0.9); EOSINOPHILS % (AUTO) 2.7 % (0-6); HEMATOCRIT 30.8 % (42.0-52.0); HEMOGLOBIN 10.5 g/dl (14.0-17.9); LYMPHOCYTES # (AUTO) 1.1 X10'3 (1.1-4.8); LYMPHOCYTES % (AUTO) 17.6 % (21-51); MEAN CORPUSCULAR HEMOGLOBIN 32.6 PG (27.0-31.0); MEAN CORPUSCULAR HGB CONC 34.2 % (33.0-36.5); MEAN CORPUSCULAR VOLUME 95.3 FL (78-98); MEAN PLATELET VOLUME 6.6 FL (7.4-10.4); MONOCYTES # (AUTO) 0.7 X10'3 (0-0.9); MONOCYTES % (AUTO) 11.9 % (2-12); NEUTROPHILS # (AUTO) 4.1 X10'3 (1.8-7.7); NEUTROPHILS % (AUTO) 67.5 % (42-75); PLATELET COUNT 231 X10'3 (140-440); RED BLOOD COUNT 3.24 X10'6 (4.70-6.10); RED CELL DISTRIBUTION WIDTH 15.7 % (11.5-14.5); WHITE BLOOD COUNT 6.1 X10'3 (4.5-11.0)
[2017-05-28] MEDS: vancomycin inj 1,250 MG in normal saline 250ml IV soln 250 ML IV SCH (04:05)
[2017-05-28 04:16] LABS: ALBUMIN 2.5 G/DL (3.4-5.0); ANION GAP 7 (8-16); BLOOD UREA NITROGEN 12 MG/DL (7-18); BUN/CREATININE RATIO 13.6 (5.4-32.0); CHLORIDE 116 MMOL/L (99-107); CREATININE 0.88 MG/DL (0.60-1.10); GLUCOSE 84 MG/DL (70-104); MAGNESIUM 1.8 MG/DL (1.5-2.4); PHOSPHORUS 3.1 MG/DL (2.3-4.5); POTASSIUM 3.4 MMOL/L (3.5-5.1); SODIUM 150 MMOL/L (135-145); TOTAL CARBON DIOXIDE 27.5 MMOL/L (24-32); VANCOMYCIN,TROUGH 19.3 UG/ML (6.0-14.0); eGFR 82 ML/MIN
[2017-05-28] MEDS ORDERED: diatr meglu/diatrizoate 30ml oral sol.-(3 dose) bottle PO SCH (07:00)
[2017-05-28] MEDS: ipratropium/albuterol 3ml nebule IH SCH ×4 (07:11→20:50)
[2017-05-28 07:20] VITALS: BP 122/68
[2017-05-28] MEDS: pantoprazole 40 MG vial IV SCH (07:35)
[2017-05-28] MEDS: diatr meglu/diatrizoate 30ml oral sol.-(3 dose) bottle PO SCH ×2 (07:35→10:44)
[2017-05-28] MEDS: lactobacillus rhamnosus 10,000 MMU CELLS/CAPSULE PO SCH ×2 (07:36→15:17)
[2017-05-28] MEDS: furosemide 20MG tablet PO SCH (07:36)
[2017-05-28] MEDS: gabapentin 100mg capsule PO SCH (07:36)
[2017-05-28] MEDS: potassium Cl 20 mEq SR tablet PO PRN ×2 (07:36→15:17)
[2017-05-28] MEDS: K and/or MAG REPLACEMENT MC SCH ×2 (08:00)
[2017-05-28] MEDS ORDERED: LORazepam 1 MG tablet PO ONE (10:35)
[2017-05-28] MEDS ORDERED: iohexol 300mg/ml 100ml inj. ONE (10:40)
[2017-05-28 11:34] VITALS: BP 136/77
[2017-05-28] MEDS: apixaban 5mg tablet PO SCH ×2 (11:47→20:47)
[2017-05-28] MEDS: clopidogrel 75mg tablet PO SCH (11:47)
[2017-05-28 18:50] VITALS: BP 120/64
[2017-05-28] MEDS: atorvastatin 20mg tablet PO SCH (20:48)
[2017-05-28] MEDS: roflumilast 500mcg tablet PO SCH (20:48)
[2017-05-28] MEDS: mirtazapine 15mg tablet PO SCH (20:48)
[2017-05-28] MEDS: gabapentin 300mg capsule PO SCH (20:48)
[2017-05-28] MEDS: tamsulosin 0.4mg capsule PO SCH (20:55)
[2017-05-29] VITALS: BP 133/67
[2017-05-29] MEDS: HYDROmorphone inj. 0.5 MG/0.5 ML DISP.SYRIN IV PRN ×4 (00:36→16:04)
[2017-05-29] MEDS: piperacillin/tazo 3.375gm/50ml 50 ML IV SCH ×3 (01:39→13:04)
[2017-05-29 05:38] LABS: BASOPHILS % (AUTO) 0.3 % (0-1); EOSINOPHILS # (AUTO) 0.2 X10'3 (0-0.9); EOSINOPHILS % (AUTO) 3.3 % (0-6); HEMATOCRIT 32.1 % (42.0-52.0); HEMOGLOBIN 10.9 g/dl (14.0-17.9); LYMPHOCYTES % (AUTO) 16.8 % (21-51); MEAN CORPUSCULAR HEMOGLOBIN 32.4 PG (27.0-31.0); MEAN CORPUSCULAR HGB CONC 34.1 % (33.0-36.5); MEAN CORPUSCULAR VOLUME 94.9 FL (78-98); MEAN PLATELET VOLUME 6.7 FL (7.4-10.4); MONOCYTES # (AUTO) 0.8 X10'3 (0-0.9); MONOCYTES % (AUTO) 13.7 % (2-12); NEUTROPHILS # (AUTO) 3.8 X10'3 (1.8-7.7); NEUTROPHILS % (AUTO) 65.9 % (42-75); PLATELET COUNT 241 X10'3 (140-440); RED BLOOD COUNT 3.38 X10'6 (4.70-6.10); RED CELL DISTRIBUTION WIDTH 15.4 % (11.5-14.5); WHITE BLOOD COUNT 5.7 X10'3 (4.5-11.0)
[2017-05-29 06:32] LABS: ALBUMIN 2.8 G/DL (3.4-5.0); ANION GAP 10 (8-16); BLOOD UREA NITROGEN 8 MG/DL (7-18); BUN/CREATININE RATIO 8.4 (5.4-32.0); CALCIUM 8.3 MG/DL (8.5-10.1); CHLORIDE 113 MMOL/L (99-107); CREATININE 0.95 MG/DL (0.60-1.10); GLUCOSE 93 MG/DL (70-104); MAGNESIUM 1.8 MG/DL (1.5-2.4); PHOSPHORUS 2.8 MG/DL (2.3-4.5); POTASSIUM 3.2 MMOL/L (3.5-5.1); SODIUM 151 MMOL/L (135-145); TOTAL CARBON DIOXIDE 27.9 MMOL/L (24-32); eGFR 75 ML/MIN
[2017-05-29 07:09] VITALS: BP 123/75
[2017-05-29] MEDS: pantoprazole 40mg Tablet.DR PO SCH (07:29)
[2017-05-29] MEDS: clopidogrel 75mg tablet PO SCH (07:29)
[2017-05-29] MEDS: apixaban 5mg tablet PO SCH ×2 (07:29→20:44)
[2017-05-29] MEDS: lactobacillus rhamnosus 10,000 MMU CELLS/CAPSULE PO SCH ×2 (07:29→16:59)
[2017-05-29] MEDS: potassium Cl 20 mEq SR tablet PO PRN ×3 (07:30→17:06)
[2017-05-29] MEDS: HYDROcodone/acetaminophen 10/325mg tab PO PRN (07:30)
[2017-05-29] MEDS: furosemide 20MG tablet PO SCH (07:30)
[2017-05-29] MEDS: gabapentin 100mg capsule PO SCH (07:31)
[2017-05-29] MEDS: K and/or MAG REPLACEMENT MC SCH ×2 (07:59→08:00)
[2017-05-29 08:00] VITALS: BP 123/75
[2017-05-29] MEDS: ipratropium/albuterol 3ml nebule IH SCH ×2 (08:08→12:06)
[2017-05-29] MEDS ORDERED: ALPRAZolam 0.25mg tablet PO ONE (10:40)
[2017-05-29] MEDS ORDERED: ketorolac trometh. 30mg/ml inj. IV PRN (10:50)
[2017-05-29 11:00] VITALS: BP 122/67
[2017-05-29] MEDS: ipratropium/albuterol 3ml nebule NEB SCH ×2 (15:00→19:03)
[2017-05-29 18:40] VITALS: BP 114/60
[2017-05-29] MEDS: ampicillin inj 2 GM in normal saline 100ml IV soln 100 ML IV SCH (20:44)
[2017-05-29] MEDS: gabapentin 300mg capsule PO SCH (20:45)
[2017-05-29] MEDS: tamsulosin 0.4mg capsule PO SCH (20:45)
[2017-05-29] MEDS: roflumilast 500mcg tablet PO SCH (20:45)
[2017-05-29] MEDS: atorvastatin 20mg tablet PO SCH (20:45)
[2017-05-29] MEDS: mirtazapine 15mg tablet PO SCH (20:56)
[2017-05-30] VITALS: BP 114/60
[2017-05-30] MEDS: ampicillin inj 2 GM in normal saline 100ml IV soln 100 ML IV SCH ×2 (02:14→07:16)
[2017-05-30 06:06] LABS: BASOPHILS % (AUTO) 0.2 % (0-1); EOSINOPHILS # (AUTO) 0.2 X10'3 (0-0.9); EOSINOPHILS % (AUTO) 3.1 % (0-6); HEMATOCRIT 30.9 % (42.0-52.0); HEMOGLOBIN 10.5 g/dl (14.0-17.9); LYMPHOCYTES # (AUTO) 0.7 X10'3 (1.1-4.8); LYMPHOCYTES % (AUTO) 13.3 % (21-51); MEAN CORPUSCULAR HEMOGLOBIN 32.1 PG (27.0-31.0); MEAN CORPUSCULAR HGB CONC 33.9 % (33.0-36.5); MEAN CORPUSCULAR VOLUME 94.7 FL (78-98); MONOCYTES # (AUTO) 0.7 X10'3 (0-0.9); MONOCYTES % (AUTO) 13.1 % (2-12); NEUTROPHILS # (AUTO) 3.9 X10'3 (1.8-7.7); NEUTROPHILS % (AUTO) 70.3 % (42-75); PLATELET COUNT 235 X10'3 (140-440); RED BLOOD COUNT 3.27 X10'6 (4.70-6.10); RED CELL DISTRIBUTION WIDTH 16.2 % (11.5-14.5); WHITE BLOOD COUNT 5.6 X10'3 (4.5-11.0)
[2017-05-30 06:21] LABS: ALBUMIN 2.7 G/DL (3.4-5.0); ANION GAP 8 (8-16); BLOOD UREA NITROGEN 8 MG/DL (7-18); BUN/CREATININE RATIO 8.4 (5.4-32.0); CALCIUM 8.5 MG/DL (8.5-10.1); CHLORIDE 113 MMOL/L (99-107); CREATININE 0.95 MG/DL (0.60-1.10); GLUCOSE 88 MG/DL (70-104); MAGNESIUM 1.9 MG/DL (1.5-2.4); PHOSPHORUS 2.1 MG/DL (2.3-4.5); POTASSIUM 3.8 MMOL/L (3.5-5.1); SODIUM 150 MMOL/L (135-145); TOTAL CARBON DIOXIDE 29.4 MMOL/L (24-32); eGFR 75 ML/MIN
[2017-05-30 07:02] VITALS: BP 118/67
[2017-05-30] MEDS: ipratropium/albuterol 3ml nebule NEB SCH ×3 (07:13→14:32)
[2017-05-30] MEDS: pantoprazole 40mg Tablet.DR PO SCH (07:16)
[2017-05-30] MEDS: furosemide 20MG tablet PO SCH (07:16)
[2017-05-30] MEDS: lactobacillus rhamnosus 10,000 MMU CELLS/CAPSULE PO SCH ×2 (07:16→16:36)
[2017-05-30] MEDS: clopidogrel 75mg tablet PO SCH (07:16)
[2017-05-30] MEDS: apixaban 5mg tablet PO SCH ×2 (07:16→19:45)
[2017-05-30] MEDS: gabapentin 100mg capsule PO SCH (07:16)
[2017-05-30] MEDS: K and/or MAG REPLACEMENT MC SCH ×2 (07:17→07:18)
[2017-05-30] MEDS: HYDROcodone/acetaminophen 10/325mg tab PO PRN ×3 (07:17→16:36)
[2017-05-30] MEDS ORDERED: oxyCODONE SR 10mg (sust. release) tab PO PRN (08:30)
[2017-05-30] MEDS ORDERED: oxyCODONE IR 5mg (immed. release) tablet PO PRN (08:36)
[2017-05-30] MEDS ORDERED: loperamide 2mg capsule PO PRN (09:05)
[2017-05-30] MEDS ORDERED: nystatin 500,000 unit/5ML UD oral suspension PO SCH (09:05)
[2017-05-30] MEDS ORDERED: HYDROmorphone inj. 0.5 MG/0.5 ML DISP.SYRIN IV PRN (09:05)
[2017-05-30] MEDS: fluconazole 100mg tablet PO SCH (10:39)
[2017-05-30] MEDS: piperacillin/tazo 3.375gm/50ml 50 ML IV SCH ×3 (10:39→19:45)
[2017-05-30] MEDS: methylPREDNISolone sod succ 125mg/2ml vial IV SCH ×2 (10:39→19:47)
[2017-05-30 11:00] VITALS: BP 125/63
[2017-05-30] MEDS ORDERED: sodium phosphate inj. 15 MMOL in dextrose 5%-water 150 ML IV PRN (11:36)
[2017-05-30] MEDS ORDERED: sodium phosphate inj. 30 MMOL in dextrose 5%-water 250 ML IV PRN (11:36)
[2017-05-30] MEDS ORDERED: Neutra Phos packet PO PRN (11:40)
[2017-05-30] MEDS: sodium chloride 0.45% 1,000 ML IV SCH ×2 (13:14→22:30)
[2017-05-30 19:30] VITALS: BP 112/61
[2017-05-30] MEDS: morphine 4 MG/ML inj SYRINge IV PRN (20:06)
[2017-05-30] MEDS: atorvastatin 20mg tablet PO SCH (22:19)
[2017-05-30] MEDS: mirtazapine 15mg tablet PO SCH (22:19)
[2017-05-30] MEDS: tamsulosin 0.4mg capsule PO SCH (22:19)
[2017-05-30] MEDS: roflumilast 500mcg tablet PO SCH (22:19)
[2017-05-30] MEDS: gabapentin 300mg capsule PO SCH (22:20)
[2017-05-31] VITALS: BP 125/62
[2017-05-31] MEDS: sodium chloride 0.45% 1,000 ML IV SCH ×2 (01:15→13:56)
[2017-05-31] MEDS: HYDROcodone/acetaminophen 10/325mg tab PO PRN ×2 (01:21→12:22)
[2017-05-31] MEDS: piperacillin/tazo 3.375gm/50ml 50 ML IV SCH ×3 (02:13→13:50)
[2017-05-31] MEDS: morphine 4 MG/ML inj SYRINge IV PRN ×2 (03:19→08:30)
[2017-05-31] MEDS: ipratropium/albuterol 3ml nebule NEB SCH ×4 (04:52→15:22)
[2017-05-31 07:00] VITALS: BP 102/53
[2017-05-31] MEDS: K and/or MAG REPLACEMENT MC SCH (08:00)
[2017-05-31] MEDS: methylPREDNISolone sod succ 125mg/2ml vial IV SCH (08:16)
[2017-05-31] MEDS: clopidogrel 75mg tablet PO SCH (08:16)
[2017-05-31] MEDS: lactobacillus rhamnosus 10,000 MMU CELLS/CAPSULE PO SCH (08:17)
[2017-05-31] MEDS: furosemide 20MG tablet PO SCH (08:17)
[2017-05-31] MEDS: gabapentin 100mg capsule PO SCH (08:17)
[2017-05-31] MEDS: pantoprazole 40mg Tablet.DR PO SCH (08:17)
[2017-05-31] MEDS: fluconazole 100mg tablet PO SCH (08:18)
[2017-05-31] MEDS: apixaban 5mg tablet PO SCH (08:18)
[2017-05-31 11:00] VITALS: BP 107/54
[2017-05-31] MEDS: ALPRAZolam 0.5mg tablet PO PRN (16:29)
== END 2017-05-31 17:14 | DRG 871 ==
LOC: ER 08:59 → ED HOLD 14:32 → EDBEDREQ 17:07 → MED 3N 18:05 → UNDODISIN 05-30 14:00
PROVIDERS: ADMIT Internal Medicine Nephrology; ATTEND Internal Medicine
PROC: BW211ZZ Computerized Tomography (CT Scan) of Abdomen and Pelvis using Low Osmolar Contrast (ICD-10-PCS; principal; 2017-05-28)
DX: A41.81 Sepsis due to Enterococcus (principal); J96.20 Acute and chronic respiratory failure, unspecified whether with hypoxia or hypercapnia; B37.0 Candidal stomatitis; E87.0 Hyperosmolality and hypernatremia; I50.32 Chronic diastolic (congestive) heart failure; J44.0 Chronic obstructive pulmonary disease with (acute) lower respiratory infection; J44.1 Chronic obstructive pulmonary disease with (acute) exacerbation; E87.1 Hypo-osmolality and hyponatremia; A09 Infectious gastroenteritis and colitis, unspecified; I11.0 Hypertensive heart disease with heart failure; I48.2 Chronic atrial fibrillation; K20.9 Esophagitis, unspecified; M85.80 Other specified disorders of bone density and structure, unspecified site; E78.5 Hyperlipidemia, unspecified; G89.29 Other chronic pain; I08.1 Rheumatic disorders of both mitral and tricuspid valves; F32.9 Major depressive disorder, single episode, unspecified; F41.9 Anxiety disorder, unspecified; M54.9 Dorsalgia, unspecified; I25.10 Atherosclerotic heart disease of native coronary artery without angina pectoris; J20.9 Acute bronchitis, unspecified; N40.0 Benign prostatic hyperplasia without lower urinary tract symptoms; F17.210 Nicotine dependence, cigarettes, uncomplicated; I25.2 Old myocardial infarction; Z90.49 Acquired absence of other specified parts of digestive tract; Z95.5 Presence of coronary angioplasty implant and graft; Z99.81 Dependence on supplemental oxygen; Z79.01 Long term (current) use of anticoagulants; Z86.73 Personal history of transient ischemic attack (TIA), and cerebral infarction without residual deficits; Z87.440 Personal history of urinary (tract) infections; Z87.442 Personal history of urinary calculi
CPT/HCPCS: 36415; 36600; 71045; 71250; 72141; 72148; 74018; 74177; 80048; 80053; 80202; 81001; 82803; 83605; 83735; 83880; 84100; 84145; 84484; 85018; 85025; 85610; 85651; 85730; 86140; 87040; 87070; 87077; 87186; 93005; 93306; 94640; 94760; 96365; 96375; 97110; 97116; 99285; A6212; A6258; A6449; C9113; J0290; J0696; J1170; J1885; J2060; J2270; J2405; J2543; J2930; J3370; J3475; J3490; J7030; J7060; Q9963; Q9967

== ENCOUNTER 2017-06-13 10:00 | Inpatient (IN) | payer MEDICARE, BC ==
[~2017-06-13] VITALS: Ht 182.9 cm; Wt 80.6 kg
[~2017-06-13 10:00] MED LIST changes: -METH4TAB3 PO; -PRED10TA PO; -SOTA80TA PO; -TERB250T4 PO
[2017-06-13] MEDS ORDERED: methylPREDNISolone sod succ 125mg/2ml vial IV ONE (10:20)
[2017-06-13 10:36] LABS: BASOPHILS # (AUTO) 0.1 X10'3 (0-0.2); BASOPHILS % (AUTO) 0.6 % (0-1); EOSINOPHILS # (AUTO) 0.1 X10'3 (0-0.9); EOSINOPHILS % (AUTO) 0.9 % (0-6); HEMATOCRIT 35.7 % (42.0-52.0); HEMOGLOBIN 11.8 g/dl (14.0-17.9); LYMPHOCYTES # (AUTO) 1.1 X10'3 (1.1-4.8); LYMPHOCYTES % (AUTO) 9.3 % (21-51); MEAN CORPUSCULAR HEMOGLOBIN 31.9 PG (27.0-31.0); MEAN CORPUSCULAR VOLUME 96.7 FL (78-98); MEAN PLATELET VOLUME 6.3 FL (7.4-10.4); MONOCYTES # (AUTO) 0.6 X10'3 (0-0.9); MONOCYTES % (AUTO) 5.5 % (2-12); NEUTROPHILS # (AUTO) 9.6 X10'3 (1.8-7.7); NEUTROPHILS % (AUTO) 83.7 % (42-75); PLATELET COUNT 312 X10'3 (140-440); RED BLOOD COUNT 3.69 X10'6 (4.70-6.10); RED CELL DISTRIBUTION WIDTH 16.8 % (11.5-14.5); WHITE BLOOD COUNT 11.5 X10'3 (4.5-11.0)
[2017-06-13 10:47] LABS: PARTIAL THROMBOPLASTIN TIME 23 SECONDS (22-32); PROTHROMBIN TIME 10.1 SECONDS (9.0-12.0)
[2017-06-13 11:04] LABS: ALANINE AMINOTRANSFERASE 30 U/L (12-78); ALBUMIN 3.4 G/DL (3.4-5.0); ALKALINE PHOSPHATASE 67 IU/L (46-116); ANION GAP 9 (8-16); ASPARTATE AMINO TRANSFERASE 14 U/L (10-37); BILIRUBIN,TOTAL 0.3 MG/DL (0.1-1.0); BLOOD UREA NITROGEN 12 MG/DL (7-18); BUN/CREATININE RATIO 9.5 (5.4-32.0); CALCIUM 9.5 MG/DL (8.5-10.1); CHLORIDE 108 MMOL/L (99-107); CREATININE 1.26 MG/DL (0.60-1.10); GLUCOSE 98 MG/DL (70-104); POTASSIUM 3.8 MMOL/L (3.5-5.1); SODIUM 150 MMOL/L (135-145); TOTAL CARBON DIOXIDE 32.8 MMOL/L (24-32); TOTAL PROTEIN 6.8 G/DL (6.4-8.2); eGFR 54 ML/MIN
[2017-06-13] MEDS ORDERED: morphine 4 MG/ML inj SYRINge IV ONE (11:20)
[2017-06-13 11:45] LABS: CLARITY,URINE Clear (Clear); GLUCOSE, URINE Negative (Neg); KETONES,URINE Negative (Neg); LEUKOCYTE ESTERASE ,URINE Negative (Neg); NITRITES, URINE Negative (Neg); OCCULT BLOOD,URINE Small (Neg); PROTEIN,URINE Negative (Neg); UROBILINOGEN,URINE 0.2 E.U/dL (0.2-1.0)
[2017-06-13 11:58] LABS: COLOR,URINE Straw (Yellow); UA COLLECTION TYPE VOIDED
[2017-06-13 12:05] LABS: MUCUS STRANDS FEW /LPF (Neg); SQUAMOUS EPITHELIAL CELL,UR FEW /LPF (FEW)
[2017-06-13 12:06] LABS: BACTERIA,URINE NONE SEEN /HPF (Neg); HYALINE CASTS 0-3 /LPF (NEGATIVE); WBC,URINE 0-4 /HPF (0-4); YEAST FEW /HPF (NEGATIVE)
[2017-06-13] MEDS ORDERED: cefepime 1GM/NS ADD-VANTAGE 100 ML IV ONE (12:50)
[2017-06-13] MEDS ORDERED: azithromycin/NS 500mg/250ml 250 ML IV ONE (12:50)
[2017-06-13] MEDS ORDERED: vancomycin/NS 1 GM ADD-VANTAGE 250 ML IV ONE (12:50)
[2017-06-13] MEDS ORDERED: albuterol 2.5 MG/3 ML nebule NEB ONE (12:50)
[2017-06-13] MEDS ORDERED: normal saline 1000ML IV soln IVB ONE (12:55)
[2017-06-13] MEDS ORDERED: ATOR20TA PO (13:20)
[2017-06-13] MEDS ORDERED: [UNRECOGNIZED DRUG - OTHER] PO (13:24)
[2017-06-13] MEDS ORDERED: BISA-78 PO (13:26)
[2017-06-13] MEDS ORDERED: ONDA4TAB6 PO (13:26)
[2017-06-13] MEDS ORDERED: CALC355O3 (13:29)
[2017-06-13] MEDS ORDERED: GUAI100L55 PO (13:29)
[2017-06-13] MEDS ORDERED: LOPE2CAP PO (13:29)
[2017-06-13] MEDS ORDERED: DOCU100C41 PO (13:30)
[2017-06-13] MEDS ORDERED: ALPR-624 PO (13:31)
[2017-06-13] MEDS ORDERED: ACET-2119 PO (13:32)
[2017-06-13] MEDS ORDERED: PRED10TA23 PO (13:36)
[2017-06-13] MEDS ORDERED: POTA-84 PO (13:36)
[2017-06-13] MEDS ORDERED: OXYC10TA57 PO (13:37)
[2017-06-13] MEDS ORDERED: HYDR-565 PO (13:38)
[2017-06-13] MEDS ORDERED: PANT20TA3 PO (13:40)
[2017-06-13] MEDS ORDERED: GABA-530 PO (13:42)
[2017-06-13 14:06] LABS: ABG BASE EXCESS 7.5 mmol/L (-2.0-3.0); ABG HCO3 32.5 mmol/L (22.0-26.0); ABG PCO2 (T) 47.6 mmHg (35.0-48.0); ABG PH (T) 7.452 (7.350-7.450); ALLEN'S TEST Positive; FCOHb 0.1 % (0.5-1.5); FMetHb 0.1 % (0.3-1.12); FO2Hb 95.8 % (94-100); RESPIRATORY RATE 20 b/min
[2017-06-13] MEDS: furosemide 40mg/4ml inj IV ONE ×2 (15:53→16:50)
[2017-06-13] MEDS ORDERED: acetaminophen 325mg tablet PO PRN ×2 (15:55→17:50)
[2017-06-13] MEDS ORDERED: magnesium hydroxide 30ml (MOM) UD suspension PO PRN (15:55)
[2017-06-13] MEDS ORDERED: nitroGLYCERIN 0.4mg SUBLingual tab SL PRN (17:50)
[2017-06-13] MEDS ORDERED: bisacodyl 5mg tablet.DR PO PRN (17:50)
[2017-06-13] MEDS ORDERED: ondansetron 4mg rapidly disintigrating tab PO PRN (17:50)
[2017-06-13] MEDS: DALIRESP PO SCH (18:10)
[2017-06-13] MEDS: HYDROcodone/acetaminophen 10/325mg tab PO PRN (19:26)
[2017-06-13] MEDS: loperamide 2mg capsule PO SCH (20:00)
[2017-06-13] MEDS: budesonide 0.5mg/2ml UD nebule IH SCH (20:00)
[2017-06-13] MEDS: guaiFENesin 200mg/10ml UD cup PO SCH (20:00)
[2017-06-13] MEDS ORDERED: heparin, porcine 5000 units/ml vial SQ SCH (20:00)
[2017-06-13] MEDS: ipratropium/albuterol 3ml nebule NEB SCH ×2 (20:04→23:52)
[2017-06-13] MEDS: cefepime 2g/NS 100ml ADVANTAGE 100 ML IV SCH (22:22)
[2017-06-14] MEDS: furosemide 40mg/4ml inj IV SCH ×3 (00:19→21:41)
[2017-06-14] MEDS: methylPREDNISolone sod succ 125mg/2ml vial IV SCH ×5 (00:20→21:42)
[2017-06-14] MEDS: lactobacillus rhamnosus 10,000 MMU CELLS/CAPSULE PO SCH ×2 (00:20→07:21)
[2017-06-14] MEDS: apixaban 5mg tablet PO SCH ×3 (00:20→21:41)
[2017-06-14] MEDS: docusate sod 100mg capsule PO SCH ×3 (00:20→21:40)
[2017-06-14] MEDS: HYDROcodone/acetaminophen 10/325mg tab PO PRN ×3 (00:21→18:39)
[2017-06-14] MEDS: oxyCODONE SR 10mg (sust. release) tab PO SCH ×3 (00:21→21:42)
[2017-06-14] MEDS: atorvastatin 20mg tablet PO SCH ×2 (00:21→21:39)
[2017-06-14] MEDS: potassium Cl 20 mEq SR tablet PO SCH ×3 (00:21→21:40)
[2017-06-14] MEDS: gabapentin 300mg capsule PO SCH ×2 (00:22→21:39)
[2017-06-14] MEDS: tamsulosin 0.4mg capsule PO SCH ×2 (00:22→21:39)
[2017-06-14] MEDS: guaiFENesin 200mg/10ml UD cup PO SCH ×4 (02:00→20:00)
[2017-06-14 03:50] VITALS: BP 168/98
[2017-06-14 03:53] LABS: ALBUMIN 2.9 G/DL (3.4-5.0); ANION GAP 6 (8-16); BLOOD UREA NITROGEN 17 MG/DL (7-18); BUN/CREATININE RATIO 18.1 (5.4-32.0); CALCIUM 8.7 MG/DL (8.5-10.1); CHLORIDE 107 MMOL/L (99-107); CREATININE 0.94 MG/DL (0.60-1.10); GLUCOSE 117 MG/DL (70-104); POTASSIUM 4.1 MMOL/L (3.5-5.1); SODIUM 145 MMOL/L (135-145); TOTAL CARBON DIOXIDE 32.3 MMOL/L (24-32); eGFR 76 ML/MIN
[2017-06-14] MEDS: ipratropium/albuterol 3ml nebule NEB SCH (03:53)
[2017-06-14] MEDS ORDERED: morphine 2 MG/ML inj. syringe IV ONE (04:10)
[2017-06-14] MEDS ORDERED: morphine 4 MG/ML inj SYRINge IV ONE (04:25)
[2017-06-14 05:31] LABS: BASOPHILS % (AUTO) 0 % (0-1); EOSINOPHILS # (AUTO) 0.1 X10'3 (0-0.9); EOSINOPHILS % (AUTO) 1.4 % (0-6); HEMATOCRIT 35.1 % (42.0-52.0); HEMOGLOBIN 11.8 g/dl (14.0-17.9); LYMPHOCYTES # (AUTO) 0.3 X10'3 (1.1-4.8); LYMPHOCYTES % (AUTO) 3.8 % (21-51); MEAN CORPUSCULAR HEMOGLOBIN 32.4 PG (27.0-31.0); MEAN CORPUSCULAR HGB CONC 33.5 % (33.0-36.5); MEAN CORPUSCULAR VOLUME 96.7 FL (78-98); MEAN PLATELET VOLUME 6.9 FL (7.4-10.4); MONOCYTES # (AUTO) 0.1 X10'3 (0-0.9); MONOCYTES % (AUTO) 1.6 % (2-12); NEUTROPHILS # (AUTO) 7.1 X10'3 (1.8-7.7); NEUTROPHILS % (AUTO) 93.2 % (42-75); PLATELET COUNT 289 X10'3 (140-440); RED BLOOD COUNT 3.63 X10'6 (4.70-6.10); RED CELL DISTRIBUTION WIDTH 16.3 % (11.5-14.5); WHITE BLOOD COUNT 7.6 X10'3 (4.5-11.0)
[2017-06-14 07:00] VITALS: BP 105/50
[2017-06-14] MEDS: loperamide 2mg capsule PO SCH ×2 (07:20→21:42)
[2017-06-14] MEDS: budesonide 0.5mg/2ml UD nebule IH SCH ×2 (07:20→20:58)
[2017-06-14] MEDS: pantoprazole 40mg Tablet.DR PO SCH (07:21)
[2017-06-14] MEDS: clopidogrel 75mg tablet PO SCH (07:23)
[2017-06-14] MEDS: bisacodyl 5mg tablet.DR PO SCH (07:28)
[2017-06-14] MEDS: gabapentin 100mg capsule PO SCH (07:42)
[2017-06-14] MEDS: cefepime 2g/NS 100ml ADVANTAGE 100 ML IV SCH ×2 (07:43→21:38)
[2017-06-14] MEDS: DALIRESP PO SCH (07:43)
[2017-06-14] MEDS ORDERED: ipratropium/albuterol 3ml nebule NEB PRN (07:45)
[2017-06-14] MEDS ORDERED: ACIDOPH PO SCH (08:00)
[2017-06-14] MEDS ORDERED: B LONGUM PO SCH (08:00)
[2017-06-14] MEDS ORDERED: B ANIMALIS PO SCH (08:00)
[2017-06-14] MEDS ORDERED: furosemide 20MG tablet PO SCH (08:00)
[2017-06-14 11:00] VITALS: BP 112/56
[2017-06-14] MEDS: ipratropium/albuterol 3ml nebule IH SCH ×3 (11:16→20:59)
[2017-06-14] MEDS: ALPRAZolam 0.5mg tablet PO PRN ×2 (13:50→22:18)
[2017-06-14 15:00] VITALS: BP 118/55
[2017-06-14 19:00] VITALS: BP 140/71
[2017-06-14] MEDS ORDERED: lactobacillus rhamnosus 10,000 MMU CELLS/CAPSULE PO ONE (22:17)
[2017-06-14 23:00] VITALS: BP 122/84
[2017-06-15] MEDS: methylPREDNISolone sod succ 125mg/2ml vial IV SCH ×4 (01:30→21:34)
[2017-06-15] MEDS: guaiFENesin 200mg/10ml UD cup PO SCH ×2 (02:00→08:06)
[2017-06-15 03:00] VITALS: BP 117/75
[2017-06-15 04:05] LABS: BASOPHILS % (AUTO) 0 % (0-1); EOSINOPHILS # (AUTO) 0.1 X10'3 (0-0.9); EOSINOPHILS % (AUTO) 1.3 % (0-6); HEMATOCRIT 30.3 % (42.0-52.0); HEMOGLOBIN 10.1 g/dl (14.0-17.9); LYMPHOCYTES # (AUTO) 0.2 X10'3 (1.1-4.8); MEAN CORPUSCULAR HEMOGLOBIN 32.1 PG (27.0-31.0); MEAN CORPUSCULAR HGB CONC 33.3 % (33.0-36.5); MEAN CORPUSCULAR VOLUME 96.4 FL (78-98); MONOCYTES # (AUTO) 0.5 X10'3 (0-0.9); MONOCYTES % (AUTO) 5.5 % (2-12); NEUTROPHILS # (AUTO) 7.5 X10'3 (1.8-7.7); NEUTROPHILS % (AUTO) 91.2 % (42-75); PLATELET COUNT 251 X10'3 (140-440); RED BLOOD COUNT 3.14 X10'6 (4.70-6.10); RED CELL DISTRIBUTION WIDTH 16.2 % (11.5-14.5); WHITE BLOOD COUNT 8.2 X10'3 (4.5-11.0)
[2017-06-15 04:41] LABS: ALBUMIN 2.8 G/DL (3.4-5.0); ANION GAP 8 (8-16); BLOOD UREA NITROGEN 28 MG/DL (7-18); BUN/CREATININE RATIO 23.3 (5.4-32.0); CALCIUM 9.1 MG/DL (8.5-10.1); CHLORIDE 107 MMOL/L (99-107); GLUCOSE 125 MG/DL (70-104); POTASSIUM 3.7 MMOL/L (3.5-5.1); SODIUM 146 MMOL/L (135-145); eGFR 57 ML/MIN
[2017-06-15 06:00] VITALS: BP 124/72
[2017-06-15] MEDS: budesonide 0.5mg/2ml UD nebule IH SCH ×2 (07:38→20:00)
[2017-06-15] MEDS: ipratropium/albuterol 3ml nebule IH SCH ×4 (07:38→20:49)
[2017-06-15] MEDS: oxyCODONE SR 10mg (sust. release) tab PO SCH ×2 (07:52→20:53)
[2017-06-15] MEDS: gabapentin 100mg capsule PO SCH (07:54)
[2017-06-15] MEDS: potassium Cl 20 mEq SR tablet PO SCH ×2 (07:55→21:36)
[2017-06-15] MEDS: pantoprazole 40mg Tablet.DR PO SCH (07:55)
[2017-06-15] MEDS: lactobacillus rhamnosus 10,000 MMU CELLS/CAPSULE PO SCH ×2 (07:55→21:36)
[2017-06-15] MEDS: clopidogrel 75mg tablet PO SCH (07:56)
[2017-06-15] MEDS: apixaban 5mg tablet PO SCH ×2 (08:00→21:36)
[2017-06-15] MEDS: bisacodyl 5mg tablet.DR PO SCH (08:00)
[2017-06-15] MEDS: loperamide 2mg capsule PO SCH ×2 (08:00→21:35)
[2017-06-15] MEDS: docusate sod 100mg capsule PO SCH ×2 (08:01→20:00)
[2017-06-15] MEDS: DALIRESP PO SCH (08:01)
[2017-06-15] MEDS: furosemide 40mg/4ml inj IV SCH ×2 (08:04→21:35)
[2017-06-15] MEDS: cefepime 2g/NS 100ml ADVANTAGE 100 ML IV SCH ×2 (08:04→21:34)
[2017-06-15] MEDS: HYDROcodone/acetaminophen 10/325mg tab PO PRN ×3 (09:25→18:46)
[2017-06-15 11:00] VITALS: BP 129/61
[2017-06-15] MEDS: guaiFENesin 200 MG/10 ML oral syrup UD cup PO SCH ×2 (14:14→21:32)
[2017-06-15 15:00] VITALS: BP 122/68
[2017-06-15] MEDS: fluticasone nasal spray 16GM bottle NS SCH (17:35)
[2017-06-15 19:00] VITALS: BP 112/65
[2017-06-15] MEDS: ALPRAZolam 0.5mg tablet PO PRN (20:52)
[2017-06-15] MEDS: tamsulosin 0.4mg capsule PO SCH (21:35)
[2017-06-15] MEDS: gabapentin 300mg capsule PO SCH (21:35)
[2017-06-15] MEDS: atorvastatin 20mg tablet PO SCH (21:36)
[2017-06-15] MEDS: guaiFENesin ER 600mg tablet PO SCH (21:36)
[2017-06-15 23:00] VITALS: BP 127/65
[2017-06-16] MEDS: HYDROcodone/acetaminophen 10/325mg tab PO PRN ×2 (00:29→12:44)
[2017-06-16] MEDS: guaiFENesin 200 MG/10 ML oral syrup UD cup PO SCH ×4 (02:00→20:15)
[2017-06-16 03:00] VITALS: BP 121/69
[2017-06-16] MEDS: methylPREDNISolone sod succ 125mg/2ml vial IV SCH ×4 (03:15→20:16)
[2017-06-16] MEDS: ALPRAZolam 0.5mg tablet PO PRN ×3 (03:15→20:40)
[2017-06-16 05:28] LABS: BASOPHILS % (AUTO) 0 % (0-1); EOSINOPHILS # (AUTO) 0.2 X10'3 (0-0.9); EOSINOPHILS % (AUTO) 1.7 % (0-6); HEMATOCRIT 30.4 % (42.0-52.0); HEMOGLOBIN 10.1 g/dl (14.0-17.9); LYMPHOCYTES # (AUTO) 0.2 X10'3 (1.1-4.8); LYMPHOCYTES % (AUTO) 1.9 % (21-51); MEAN CORPUSCULAR HGB CONC 33.3 % (33.0-36.5); MEAN CORPUSCULAR VOLUME 96.1 FL (78-98); MEAN PLATELET VOLUME 7.1 FL (7.4-10.4); MONOCYTES # (AUTO) 0.4 X10'3 (0-0.9); MONOCYTES % (AUTO) 3.6 % (2-12); NEUTROPHILS # (AUTO) 10.2 X10'3 (1.8-7.7); NEUTROPHILS % (AUTO) 92.8 % (42-75); PLATELET COUNT 254 X10'3 (140-440); RED BLOOD COUNT 3.17 X10'6 (4.70-6.10); RED CELL DISTRIBUTION WIDTH 15.9 % (11.5-14.5)
[2017-06-16 06:00] VITALS: BP 121/69
[2017-06-16 06:16] LABS: ALBUMIN 2.6 G/DL (3.4-5.0); ANION GAP 5 (8-16); BLOOD UREA NITROGEN 33 MG/DL (7-18); BUN/CREATININE RATIO 31.4 (5.4-32.0); CALCIUM 8.7 MG/DL (8.5-10.1); CHLORIDE 110 MMOL/L (99-107); CREATININE 1.05 MG/DL (0.60-1.10); GLUCOSE 133 MG/DL (70-104); POTASSIUM 3.8 MMOL/L (3.5-5.1); SODIUM 147 MMOL/L (135-145); TOTAL CARBON DIOXIDE 31.8 MMOL/L (24-32); eGFR 67 ML/MIN
[2017-06-16] MEDS: ipratropium/albuterol 3ml nebule IH SCH ×4 (07:02→19:25)
[2017-06-16] MEDS: bisacodyl 5mg tablet.DR PO SCH (08:00)
[2017-06-16] MEDS: loperamide 2mg capsule PO SCH ×2 (08:00→20:00)
[2017-06-16] MEDS: oxyCODONE SR 10mg (sust. release) tab PO SCH ×2 (08:38→20:15)
[2017-06-16] MEDS: gabapentin 100mg capsule PO SCH (08:38)
[2017-06-16] MEDS: potassium Cl 20 mEq SR tablet PO SCH ×2 (08:39→20:16)
[2017-06-16] MEDS: apixaban 5mg tablet PO SCH ×2 (08:40→20:15)
[2017-06-16] MEDS: clopidogrel 75mg tablet PO SCH (08:40)
[2017-06-16] MEDS: roflumilast 500mcg tablet PO SCH (08:41)
[2017-06-16] MEDS: pantoprazole 40mg Tablet.DR PO SCH (08:41)
[2017-06-16] MEDS: lactobacillus rhamnosus 10,000 MMU CELLS/CAPSULE PO SCH ×2 (08:44→20:16)
[2017-06-16] MEDS: guaiFENesin ER 600mg tablet PO SCH ×2 (08:44→20:15)
[2017-06-16] MEDS: furosemide 40mg/4ml inj IV SCH ×2 (08:57→20:16)
[2017-06-16] MEDS: cefepime 2g/NS 100ml ADVANTAGE 100 ML IV SCH ×2 (09:18→20:16)
[2017-06-16] MEDS: docusate sod 100mg capsule PO SCH ×2 (09:24→20:00)
[2017-06-16] MEDS: fluticasone nasal spray 16GM bottle NS SCH (09:31)
[2017-06-16] MEDS: budesonide 0.5mg/2ml UD nebule IH SCH ×2 (10:47→19:25)
[2017-06-16 11:00] VITALS: BP 134/66
[2017-06-16 15:00] VITALS: BP 123/69
[2017-06-16 19:00] VITALS: BP 146/66
[2017-06-16] MEDS: tamsulosin 0.4mg capsule PO SCH (20:15)
[2017-06-16] MEDS: gabapentin 300mg capsule PO SCH (20:16)
[2017-06-16] MEDS: atorvastatin 20mg tablet PO SCH (20:16)
[2017-06-16] MEDS: ondansetron/PF 4mg/2ml inj IV PRN (20:39)
[2017-06-17] MEDS: HYDROcodone/acetaminophen 10/325mg tab PO PRN ×2 (00:54→05:34)
[2017-06-17] MEDS: methylPREDNISolone sod succ 125mg/2ml vial IV SCH ×4 (01:02→19:39)
[2017-06-17] MEDS: guaiFENesin 200 MG/10 ML oral syrup UD cup PO SCH (01:02)
[2017-06-17 03:00] VITALS: BP 127/85
[2017-06-17 03:40] LABS: BASOPHILS % (AUTO) 0 % (0-1); EOSINOPHILS # (AUTO) 0.2 X10'3 (0-0.9); EOSINOPHILS % (AUTO) 1.6 % (0-6); HEMATOCRIT 31.2 % (42.0-52.0); HEMOGLOBIN 10.1 g/dl (14.0-17.9); LYMPHOCYTES # (AUTO) 0.1 X10'3 (1.1-4.8); LYMPHOCYTES % (AUTO) 1.2 % (21-51); MEAN CORPUSCULAR HEMOGLOBIN 31.4 PG (27.0-31.0); MEAN CORPUSCULAR HGB CONC 32.5 % (33.0-36.5); MEAN CORPUSCULAR VOLUME 96.7 FL (78-98); MONOCYTES # (AUTO) 0.5 X10'3 (0-0.9); MONOCYTES % (AUTO) 4.3 % (2-12); NEUTROPHILS # (AUTO) 9.9 X10'3 (1.8-7.7); NEUTROPHILS % (AUTO) 92.9 % (42-75); PLATELET COUNT 237 X10'3 (140-440); RED BLOOD COUNT 3.23 X10'6 (4.70-6.10); RED CELL DISTRIBUTION WIDTH 15.8 % (11.5-14.5); WHITE BLOOD COUNT 10.6 X10'3 (4.5-11.0)
[2017-06-17 04:02] LABS: ALBUMIN 2.6 G/DL (3.4-5.0); ANION GAP 7 (8-16); BLOOD UREA NITROGEN 33 MG/DL (7-18); BUN/CREATININE RATIO 33.3 (5.4-32.0); CALCIUM 8.8 MG/DL (8.5-10.1); CHLORIDE 113 MMOL/L (99-107); CREATININE 0.99 MG/DL (0.60-1.10); GLUCOSE 120 MG/DL (70-104); POTASSIUM 4.1 MMOL/L (3.5-5.1); SODIUM 150 MMOL/L (135-145); TOTAL CARBON DIOXIDE 29.8 MMOL/L (24-32); eGFR 72 ML/MIN
[2017-06-17] MEDS: ALPRAZolam 0.5mg tablet PO PRN (05:34)
[2017-06-17 06:00] VITALS: BP 133/69
[2017-06-17] MEDS: ipratropium/albuterol 3ml nebule IH SCH ×4 (07:04→21:52)
[2017-06-17] MEDS: budesonide 0.5mg/2ml UD nebule IH SCH ×2 (07:04→21:52)
[2017-06-17] MEDS: pantoprazole 40mg Tablet.DR PO SCH (07:43)
[2017-06-17] MEDS: guaiFENesin ER 600mg tablet PO SCH ×2 (07:43→19:55)
[2017-06-17] MEDS: oxyCODONE SR 10mg (sust. release) tab PO SCH ×2 (07:43→19:02)
[2017-06-17] MEDS: lactobacillus rhamnosus 10,000 MMU CELLS/CAPSULE PO SCH ×2 (07:44→19:55)
[2017-06-17] MEDS: clopidogrel 75mg tablet PO SCH (07:44)
[2017-06-17] MEDS: docusate sod 100mg capsule PO SCH ×2 (07:45→19:56)
[2017-06-17] MEDS: potassium Cl 20 mEq SR tablet PO SCH ×2 (07:45→19:55)
[2017-06-17] MEDS: apixaban 5mg tablet PO SCH ×2 (07:45→19:55)
[2017-06-17] MEDS: gabapentin 100mg capsule PO SCH (07:45)
[2017-06-17] MEDS: roflumilast 500mcg tablet PO SCH (07:46)
[2017-06-17] MEDS: fluticasone nasal spray 16GM bottle NS SCH (07:48)
[2017-06-17] MEDS: furosemide 40mg/4ml inj IV SCH (07:58)
[2017-06-17] MEDS: bisacodyl 5mg tablet.DR PO SCH (08:00)
[2017-06-17] MEDS: cefepime 2g/NS 100ml ADVANTAGE 100 ML IV SCH ×2 (08:05→19:38)
[2017-06-17 11:00] VITALS: BP 129/73
[2017-06-17] MEDS ORDERED: morphine oral 20mg/ml (conc. morphine) 1ml oral syringe PO PRN (13:15)
[2017-06-17] MEDS ORDERED: morphine 10mg/0.5ml (conc. morphine) oral syringe PO PRN (13:36)
[2017-06-17 15:00] VITALS: BP 123/60
[2017-06-17] MEDS: morphine 10mg/0.5ml (conc. morphine) oral syringe PO PRN ×2 (17:40→21:24)
[2017-06-17 19:00] VITALS: BP 133/70
[2017-06-17] MEDS: simethicone 80mg chew tab PO SCH ×2 (19:02→21:00)
[2017-06-17] MEDS: ondansetron/PF 4mg/2ml inj IV PRN (19:34)
[2017-06-17] MEDS: mag hydrox/Alum hydrox/simeth 30ml oral suspension PO PRN (19:42)
[2017-06-17] MEDS: tamsulosin 0.4mg capsule PO SCH (21:23)
[2017-06-17] MEDS: atorvastatin 20mg tablet PO SCH (21:23)
[2017-06-17] MEDS: gabapentin 300mg capsule PO SCH (21:23)
[2017-06-17 23:00] VITALS: BP 128/66
[2017-06-18] MEDS: methylPREDNISolone sod succ 125mg/2ml vial IV SCH ×4 (01:36→21:40)
[2017-06-18 03:00] VITALS: BP 123/66
[2017-06-18] MEDS: morphine 10mg/0.5ml (conc. morphine) oral syringe PO PRN ×3 (04:24→10:13)
[2017-06-18 05:24] LABS: BASOPHILS % (AUTO) 0 % (0-1); EOSINOPHILS # (AUTO) 0.2 X10'3 (0-0.9); EOSINOPHILS % (AUTO) 1.9 % (0-6); HEMATOCRIT 31.2 % (42.0-52.0); HEMOGLOBIN 10.4 g/dl (14.0-17.9); LYMPHOCYTES # (AUTO) 0.2 X10'3 (1.1-4.8); MEAN CORPUSCULAR HEMOGLOBIN 31.6 PG (27.0-31.0); MEAN CORPUSCULAR HGB CONC 33.4 % (33.0-36.5); MEAN CORPUSCULAR VOLUME 94.7 FL (78-98); MEAN PLATELET VOLUME 7.4 FL (7.4-10.4); MONOCYTES # (AUTO) 0.4 X10'3 (0-0.9); MONOCYTES % (AUTO) 4.3 % (2-12); NEUTROPHILS # (AUTO) 9.1 X10'3 (1.8-7.7); NEUTROPHILS % (AUTO) 91.8 % (42-75); PLATELET COUNT 212 X10'3 (140-440); RED BLOOD COUNT 3.29 X10'6 (4.70-6.10); RED CELL DISTRIBUTION WIDTH 15.4 % (11.5-14.5); WHITE BLOOD COUNT 9.9 X10'3 (4.5-11.0)
[2017-06-18 06:00] VITALS: BP 158/78
[2017-06-18 06:48] LABS: ALBUMIN 2.8 G/DL (3.4-5.0); ANION GAP 8 (8-16); BLOOD UREA NITROGEN 33 MG/DL (7-18); BUN/CREATININE RATIO 33.7 (5.4-32.0); CALCIUM 8.8 MG/DL (8.5-10.1); CHLORIDE 112 MMOL/L (99-107); CREATININE 0.98 MG/DL (0.60-1.10); GLUCOSE 108 MG/DL (70-104); POTASSIUM 4.2 MMOL/L (3.5-5.1); SODIUM 148 MMOL/L (135-145); TOTAL CARBON DIOXIDE 28.1 MMOL/L (24-32); eGFR 73 ML/MIN
[2017-06-18] MEDS: cefepime 2g/NS 100ml ADVANTAGE 100 ML IV SCH ×2 (08:08→21:50)
[2017-06-18] MEDS: fluticasone nasal spray 16GM bottle NS SCH (08:08)
[2017-06-18] MEDS: guaiFENesin ER 600mg tablet PO SCH ×2 (08:09→21:38)
[2017-06-18] MEDS: furosemide 40mg tablet PO SCH (08:09)
[2017-06-18] MEDS: potassium Cl 20 mEq SR tablet PO SCH ×2 (08:09→21:40)
[2017-06-18] MEDS: simethicone 80mg chew tab PO SCH ×3 (08:09→21:39)
[2017-06-18] MEDS: lactobacillus rhamnosus 10,000 MMU CELLS/CAPSULE PO SCH ×2 (08:09→21:39)
[2017-06-18] MEDS: pantoprazole 40mg Tablet.DR PO SCH (08:09)
[2017-06-18] MEDS: apixaban 5mg tablet PO SCH ×2 (08:09→21:39)
[2017-06-18] MEDS: docusate sod 100mg capsule PO SCH ×2 (08:09→21:40)
[2017-06-18] MEDS: gabapentin 100mg capsule PO SCH (08:10)
[2017-06-18] MEDS: clopidogrel 75mg tablet PO SCH (08:10)
[2017-06-18] MEDS: oxyCODONE SR 10mg (sust. release) tab PO SCH ×2 (08:10→21:39)
[2017-06-18] MEDS: ipratropium/albuterol 3ml nebule IH SCH ×4 (08:19→21:14)
[2017-06-18] MEDS: budesonide 0.5mg/2ml UD nebule IH SCH ×2 (08:19→21:15)
[2017-06-18] MEDS ORDERED: ceFAZolin 1000mg inj ONE (10:06)
[2017-06-18] MEDS: roflumilast 500mcg tablet PO SCH (10:13)
[2017-06-18] MEDS: ALPRAZolam 0.5mg tablet PO PRN (10:13)
[2017-06-18 11:00] VITALS: BP 137/79
[2017-06-18] MEDS: morphine 2 MG/ML inj. syringe IV PRN ×3 (13:37→22:52)
[2017-06-18 19:00] VITALS: BP 142/68
[2017-06-18] MEDS: gabapentin 300mg capsule PO SCH (21:38)
[2017-06-18] MEDS: atorvastatin 20mg tablet PO SCH (21:39)
[2017-06-18] MEDS: tamsulosin 0.4mg capsule PO SCH (21:40)
[2017-06-18 23:00] VITALS: BP 134/67
[2017-06-19] MEDS: ALPRAZolam 0.5mg tablet PO PRN ×3 (01:11→21:42)
[2017-06-19] MEDS: methylPREDNISolone sod succ 125mg/2ml vial IV SCH ×4 (02:09→20:30)
[2017-06-19 02:30] LABS: BASOPHILS % (AUTO) 0 % (0-1); EOSINOPHILS # (AUTO) 0.2 X10'3 (0-0.9); EOSINOPHILS % (AUTO) 0.9 % (0-6); HEMATOCRIT 32.5 % (42.0-52.0); HEMOGLOBIN 10.8 g/dl (14.0-17.9); LYMPHOCYTES # (AUTO) 0.2 X10'3 (1.1-4.8); MEAN CORPUSCULAR HEMOGLOBIN 31.9 PG (27.0-31.0); MEAN CORPUSCULAR HGB CONC 33.2 % (33.0-36.5); MEAN CORPUSCULAR VOLUME 96.2 FL (78-98); MEAN PLATELET VOLUME 7.3 FL (7.4-10.4); MONOCYTES # (AUTO) 0.6 X10'3 (0-0.9); MONOCYTES % (AUTO) 3.2 % (2-12); NEUTROPHILS # (AUTO) 16.7 X10'3 (1.8-7.7); NEUTROPHILS % (AUTO) 94.9 % (42-75); PLATELET COUNT 214 X10'3 (140-440); RED BLOOD COUNT 3.38 X10'6 (4.70-6.10); RED CELL DISTRIBUTION WIDTH 15.1 % (11.5-14.5); WHITE BLOOD COUNT 17.6 X10'3 (4.5-11.0)
[2017-06-19 02:43] LABS: ALANINE AMINOTRANSFERASE 27 U/L (12-78); ALBUMIN 2.8 G/DL (3.4-5.0); ALKALINE PHOSPHATASE 47 IU/L (46-116); ANION GAP 6 (8-16); ASPARTATE AMINO TRANSFERASE 10 U/L (10-37); BILIRUBIN,TOTAL 0.4 MG/DL (0.1-1.0); BLOOD UREA NITROGEN 37 MG/DL (7-18); BUN/CREATININE RATIO 37.4 (5.4-32.0); CALCIUM 9.1 MG/DL (8.5-10.1); CHLORIDE 111 MMOL/L (99-107); CREATININE 0.99 MG/DL (0.60-1.10); GLUCOSE 113 MG/DL (70-104); POTASSIUM 4.5 MMOL/L (3.5-5.1); SODIUM 147 MMOL/L (135-145); TOTAL CARBON DIOXIDE 30.2 MMOL/L (24-32); TOTAL PROTEIN 5.7 G/DL (6.4-8.2); eGFR 72 ML/MIN
[2017-06-19 03:00] VITALS: BP 120/67
[2017-06-19 06:30] VITALS: BP 137/72
[2017-06-19] MEDS: apixaban 5mg tablet PO SCH ×2 (07:48→20:31)
[2017-06-19] MEDS: docusate sod 100mg capsule PO SCH ×2 (07:48→20:30)
[2017-06-19] MEDS: lactobacillus rhamnosus 10,000 MMU CELLS/CAPSULE PO SCH ×2 (07:48→20:30)
[2017-06-19] MEDS: clopidogrel 75mg tablet PO SCH (07:49)
[2017-06-19] MEDS: guaiFENesin ER 600mg tablet PO SCH ×2 (07:49→20:31)
[2017-06-19] MEDS: furosemide 40mg tablet PO SCH (07:49)
[2017-06-19] MEDS: roflumilast 500mcg tablet PO SCH (07:49)
[2017-06-19] MEDS: simethicone 80mg chew tab PO SCH ×3 (07:50→20:33)
[2017-06-19] MEDS: gabapentin 100mg capsule PO SCH (07:50)
[2017-06-19] MEDS: oxyCODONE SR 10mg (sust. release) tab PO SCH ×2 (07:50→20:31)
[2017-06-19] MEDS: pantoprazole 40mg Tablet.DR PO SCH (07:50)
[2017-06-19] MEDS: fluticasone nasal spray 16GM bottle NS SCH (07:52)
[2017-06-19] MEDS: cefepime 2g/NS 100ml ADVANTAGE 100 ML IV SCH (07:52)
[2017-06-19] MEDS: potassium Cl 20 mEq SR tablet PO SCH ×2 (07:53→20:00)
[2017-06-19] MEDS: budesonide 0.5mg/2ml UD nebule IH SCH ×2 (08:00→19:35)
[2017-06-19] MEDS: ipratropium/albuterol 3ml nebule IH SCH ×3 (08:00→19:35)
[2017-06-19] MEDS ORDERED: BARIUM SULFATE 340 ML SUSP.RECON***PROCEDURE AREA ONLY**DONT ENTER PO ONE (09:16)
[2017-06-19] MEDS: morphine 2 MG/ML inj. syringe IV PRN (10:13)
[2017-06-19 11:05] VITALS: BP 145/85
[2017-06-19 13:29] LABS: CLARITY,URINE CLEAR (Clear); COLOR,URINE STRAW (Yellow); GLUCOSE, URINE NEGATIVE (Neg); KETONES,URINE NEGATIVE (Neg); LEUKOCYTE ESTERASE ,URINE NEGATIVE (Neg); NITRITES, URINE NEGATIVE (Neg); OCCULT BLOOD,URINE SMALL (Neg); PH,URINE 5.5 (4.8-8.0); PROTEIN,URINE NEGATIVE (Neg); UROBILINOGEN,URINE 0.2 E.U/dL (0.2-1.0)
[2017-06-19 13:34] LABS: UA COLLECTION TYPE VOIDED
[2017-06-19 13:43] LABS: SQUAMOUS EPITHELIAL CELL,UR FEW /LPF (FEW)
[2017-06-19 13:44] LABS: BACTERIA,URINE FEW /HPF (Neg); RBC,URINE 0-2 /HPF (0-2); WBC,URINE 0-4 /HPF (0-4)
[2017-06-19 15:00] VITALS: BP 141/84
[2017-06-19] MEDS: HYDROcodone/acetaminophen 10/325mg tab PO PRN (15:52)
[2017-06-19] MEDS: cefepime 1GM/100ML NS ADD-VANTAGE BAG IV SCH (15:53)
[2017-06-19] MEDS ORDERED: MORPHINE 2MG in 2ml NS syringe IV PRN (16:54)
[2017-06-19 19:00] VITALS: BP 135/75
[2017-06-19] MEDS ORDERED: DEXTROSE 5% IV SCH (20:00)
[2017-06-19] MEDS ORDERED: CEFEPIME IV SCH (20:00)
[2017-06-19] MEDS ORDERED: WATER IV SCH (20:00)
[2017-06-19] MEDS: atorvastatin 20mg tablet PO SCH (20:32)
[2017-06-19] MEDS: tamsulosin 0.4mg capsule PO SCH (20:32)
[2017-06-19] MEDS: gabapentin 300mg capsule PO SCH (20:33)
[2017-06-19] MEDS: mag hydrox/Alum hydrox/simeth 30ml oral suspension PO PRN (21:42)
[2017-06-19 23:00] VITALS: BP 128/68
[2017-06-20] VITALS (10 sets, daily range): BP systolic 125–155; BP diastolic 66–95
[2017-06-20] MEDS: HYDROcodone/acetaminophen 10/325mg tab PO PRN ×2 (00:01→13:33)
[2017-06-20] MEDS: cefepime 1GM/100ML NS ADD-VANTAGE BAG IV SCH ×3 (00:01→16:45)
[2017-06-20] MEDS: methylPREDNISolone sod succ 125mg/2ml vial IV SCH ×4 (02:19→16:45)
[2017-06-20 02:50] LABS: BASOPHILS % (AUTO) 0 % (0-1); EOSINOPHILS % (AUTO) 0 % (0-6); HEMATOCRIT 30.9 % (42.0-52.0); HEMOGLOBIN 10.2 g/dl (14.0-17.9); LYMPHOCYTES # (AUTO) 0.2 X10'3 (1.1-4.8); LYMPHOCYTES % (AUTO) 0.8 % (21-51); MEAN CORPUSCULAR HEMOGLOBIN 31.6 PG (27.0-31.0); MEAN CORPUSCULAR VOLUME 95.8 FL (78-98); MEAN PLATELET VOLUME 7.3 FL (7.4-10.4); MONOCYTES # (AUTO) 0.5 X10'3 (0-0.9); NEUTROPHILS # (AUTO) 17.4 X10'3 (1.8-7.7); NEUTROPHILS % (AUTO) 96.2 % (42-75); PLATELET COUNT 193 X10'3 (140-440); RED BLOOD COUNT 3.22 X10'6 (4.70-6.10); RED CELL DISTRIBUTION WIDTH 15.2 % (11.5-14.5); WHITE BLOOD COUNT 18.1 X10'3 (4.5-11.0)
[2017-06-20 03:06] LABS: ALANINE AMINOTRANSFERASE 27 U/L (12-78); ALBUMIN 2.5 G/DL (3.4-5.0); ALBUMIN/GLOBULIN RATIO 0.9 (1.1-1.5); ALKALINE PHOSPHATASE 47 IU/L (46-116); ANION GAP 9 (8-16); ASPARTATE AMINO TRANSFERASE 12 U/L (10-37); BILIRUBIN,TOTAL 0.4 MG/DL (0.1-1.0); BLOOD UREA NITROGEN 36 MG/DL (7-18); BUN/CREATININE RATIO 36.4 (5.4-32.0); CALCIUM 8.5 MG/DL (8.5-10.1); CHLORIDE 111 MMOL/L (99-107); CREATININE 0.99 MG/DL (0.60-1.10); GLUCOSE 117 MG/DL (70-104); POTASSIUM 4.3 MMOL/L (3.5-5.1); SODIUM 147 MMOL/L (135-145); TOTAL CARBON DIOXIDE 26.9 MMOL/L (24-32); TOTAL PROTEIN 5.3 G/DL (6.4-8.2); eGFR 72 ML/MIN
[2017-06-20] MEDS: ipratropium/albuterol 3ml nebule IH SCH ×5 (07:48→21:18)
[2017-06-20] MEDS: budesonide 0.5mg/2ml UD nebule IH SCH ×2 (07:49→21:17)
[2017-06-20] MEDS: furosemide 40mg tablet PO SCH (08:32)
[2017-06-20] MEDS: guaiFENesin ER 600mg tablet PO SCH ×2 (08:32→19:31)
[2017-06-20] MEDS: oxyCODONE SR 10mg (sust. release) tab PO SCH ×2 (08:32→19:31)
[2017-06-20] MEDS: docusate sod 100mg capsule PO SCH ×2 (08:32→19:31)
[2017-06-20] MEDS: apixaban 5mg tablet PO SCH ×2 (08:32→19:31)
[2017-06-20] MEDS: roflumilast 500mcg tablet PO SCH (08:32)
[2017-06-20] MEDS: clopidogrel 75mg tablet PO SCH (08:32)
[2017-06-20] MEDS: lactobacillus rhamnosus 10,000 MMU CELLS/CAPSULE PO SCH ×2 (08:32→19:31)
[2017-06-20] MEDS: gabapentin 100mg capsule PO SCH (08:33)
[2017-06-20] MEDS: pantoprazole 40mg Tablet.DR PO SCH ×2 (08:33→19:31)
[2017-06-20] MEDS: simethicone 80mg chew tab PO SCH ×3 (08:33→21:43)
[2017-06-20] MEDS: potassium Cl 20 mEq SR tablet PO SCH ×2 (08:33→19:31)
[2017-06-20] MEDS: fluticasone nasal spray 16GM bottle NS SCH (08:34)
[2017-06-20] MEDS ORDERED: fentaNYL/PF 50MCG/1 ML 2ML syringe ONE (11:18)
[2017-06-20] MEDS ORDERED: LIDOcaine Viscous 15ml cup ONE (11:18)
[2017-06-20] MEDS ORDERED: MIDAZolam 5mg/ml 2ml vial ONE (11:18)
[2017-06-20] MEDS: mag hydrox/Alum hydrox/simeth 30ml oral suspension PO PRN (19:30)
[2017-06-20] MEDS: atorvastatin 20mg tablet PO SCH (21:42)
[2017-06-20] MEDS: gabapentin 300mg capsule PO SCH (21:42)
[2017-06-20] MEDS: tamsulosin 0.4mg capsule PO SCH (21:42)
[2017-06-20] MEDS: ALPRAZolam 0.5mg tablet PO PRN (21:45)
[2017-06-21] MEDS: methylPREDNISolone sod succ 125mg/2ml vial IV SCH ×2 (00:16→08:29)
[2017-06-21] MEDS: cefepime 1GM/100ML NS ADD-VANTAGE BAG IV SCH ×2 (00:16→08:31)
[2017-06-21 03:00] VITALS: BP 112/82
[2017-06-21] MEDS: HYDROcodone/acetaminophen 10/325mg tab PO PRN ×2 (03:23→12:23)
[2017-06-21 03:56] LABS: BASOPHILS % (AUTO) 0 % (0-1); EOSINOPHILS % (AUTO) 0 % (0-6); HEMATOCRIT 32.4 % (42.0-52.0); LYMPHOCYTES # (AUTO) 0.2 X10'3 (1.1-4.8); LYMPHOCYTES % (AUTO) 1.4 % (21-51); MEAN CORPUSCULAR HEMOGLOBIN 31.9 PG (27.0-31.0); MEAN CORPUSCULAR HGB CONC 33.8 % (33.0-36.5); MEAN CORPUSCULAR VOLUME 94.4 FL (78-98); MEAN PLATELET VOLUME 7.3 FL (7.4-10.4); MONOCYTES # (AUTO) 0.5 X10'3 (0-0.9); MONOCYTES % (AUTO) 3.2 % (2-12); NEUTROPHILS # (AUTO) 14.3 X10'3 (1.8-7.7); NEUTROPHILS % (AUTO) 95.4 % (42-75); PLATELET COUNT 204 X10'3 (140-440); RED BLOOD COUNT 3.44 X10'6 (4.70-6.10); WHITE BLOOD COUNT 14.9 X10'3 (4.5-11.0)
[2017-06-21 04:16] LABS: ALANINE AMINOTRANSFERASE 26 U/L (12-78); ALBUMIN 2.6 G/DL (3.4-5.0); ALBUMIN/GLOBULIN RATIO 0.9 (1.1-1.5); ALKALINE PHOSPHATASE 52 IU/L (46-116); ANION GAP 8 (8-16); ASPARTATE AMINO TRANSFERASE 10 U/L (10-37); BILIRUBIN,TOTAL 0.5 MG/DL (0.1-1.0); BLOOD UREA NITROGEN 33 MG/DL (7-18); BUN/CREATININE RATIO 36.7 (5.4-32.0); CALCIUM 8.8 MG/DL (8.5-10.1); CHLORIDE 112 MMOL/L (99-107); GLUCOSE 111 MG/DL (70-104); POTASSIUM 4.1 MMOL/L (3.5-5.1); SODIUM 148 MMOL/L (135-145); TOTAL CARBON DIOXIDE 27.7 MMOL/L (24-32); TOTAL PROTEIN 5.5 G/DL (6.4-8.2); eGFR 80 ML/MIN
[2017-06-21] MEDS: ALPRAZolam 0.5mg tablet PO PRN (05:24)
[2017-06-21 06:00] VITALS: BP 127/72
[2017-06-21] MEDS: fluticasone nasal spray 16GM bottle NS SCH (08:00)
[2017-06-21] MEDS: potassium Cl 20 mEq SR tablet PO SCH (08:00)
[2017-06-21] MEDS: apixaban 5mg tablet PO SCH (08:00)
[2017-06-21] MEDS: budesonide 0.5mg/2ml UD nebule IH SCH (08:18)
[2017-06-21] MEDS: ipratropium/albuterol 3ml nebule IH SCH ×2 (08:19→11:40)
[2017-06-21] MEDS: pantoprazole 40mg Tablet.DR PO SCH (08:30)
[2017-06-21] MEDS: gabapentin 100mg capsule PO SCH (08:30)
[2017-06-21] MEDS: guaiFENesin ER 600mg tablet PO SCH (08:30)
[2017-06-21] MEDS: lactobacillus rhamnosus 10,000 MMU CELLS/CAPSULE PO SCH (08:30)
[2017-06-21] MEDS: simethicone 80mg chew tab PO SCH ×2 (08:30→12:25)
[2017-06-21] MEDS: oxyCODONE SR 10mg (sust. release) tab PO SCH (08:30)
[2017-06-21] MEDS: furosemide 40mg tablet PO SCH (08:30)
[2017-06-21] MEDS: docusate sod 100mg capsule PO SCH (08:30)
[2017-06-21] MEDS: roflumilast 500mcg tablet PO SCH (08:33)
[2017-06-21] MEDS ORDERED: sotalol 80mg tablet PO SCH (08:35)
[2017-06-21 11:00] VITALS: BP 122/73
[2017-06-21] MEDS ORDERED: CEFE1VIA11 IV (11:52)
[2017-06-21] MEDS ORDERED: FURO40TA4 PO (11:52)
[2017-06-21] MEDS ORDERED: METH125V10 IV (11:52)
[2017-06-21] MEDS ORDERED: POTA20TA10 PO (11:52)
[2017-06-21] MEDS ORDERED: SOTA80TA69 PO (11:52)
[2017-06-21] MEDS ORDERED: MORP100S12 PO (11:52)
== END 2017-06-21 18:11 | DRG 177 ==
LOC: ER 10:00 → ED HOLD 15:52 → PCU 3S 06-14 03:30
PROVIDERS: ADMIT Family Medicine; ATTEND Family Medicine
PROC: 5A09357 Assistance with Respiratory Ventilation, Less than 24 Consecutive Hours, Continuous Positive Airway Pressure (ICD-10-PCS; 2017-06-13)
PROC: 0DJ08ZZ Inspection of Upper Intestinal Tract, Via Natural or Artificial Opening Endoscopic (ICD-10-PCS; principal; 2017-06-20)
DX: J69.0 Pneumonitis due to inhalation of food and vomit (principal); J96.21 Acute and chronic respiratory failure with hypoxia; I50.33 Acute on chronic diastolic (congestive) heart failure; I36.1 Nonrheumatic tricuspid (valve) insufficiency; K22.2 Esophageal obstruction; I48.0 Paroxysmal atrial fibrillation; J44.0 Chronic obstructive pulmonary disease with (acute) lower respiratory infection; J44.1 Chronic obstructive pulmonary disease with (acute) exacerbation; I11.0 Hypertensive heart disease with heart failure; I49.5 Sick sinus syndrome; Z79.01 Long term (current) use of anticoagulants; E78.00 Pure hypercholesterolemia, unspecified; E78.5 Hyperlipidemia, unspecified; F41.9 Anxiety disorder, unspecified; M19.90 Unspecified osteoarthritis, unspecified site; I25.10 Atherosclerotic heart disease of native coronary artery without angina pectoris; F32.9 Major depressive disorder, single episode, unspecified; K44.9 Diaphragmatic hernia without obstruction or gangrene; R93.3 Abnormal findings on diagnostic imaging of other parts of digestive tract; G89.29 Other chronic pain; N40.0 Benign prostatic hyperplasia without lower urinary tract symptoms; M54.9 Dorsalgia, unspecified; Y95 Nosocomial condition; K29.70 Gastritis, unspecified, without bleeding; Z66 Do not resuscitate; Z95.5 Presence of coronary angioplasty implant and graft; Z90.49 Acquired absence of other specified parts of digestive tract; I25.2 Old myocardial infarction; Z79.899 Other long term (current) drug therapy; Z82.49 Family history of ischemic heart disease and other diseases of the circulatory system; Z83.3 Family history of diabetes mellitus; Z82.3 Family history of stroke; Z87.442 Personal history of urinary calculi
CPT/HCPCS: 36415; 36600; 71045; 71046; 74018; 74220; 80048; 80053; 81001; 82803; 83605; 83880; 84145; 84484; 85018; 85025; 85610; 85730; 87040; 87070; 87077; 87186; 92616; 93005; 94640; 94660; 94760; 96365; 96368; 96375; 97110; 97116; 97162; 99291; A4333; A4620; A6257; A6258; G0500; J0456; J0690; J0692; J1940; J2250; J2270; J2405; J2930; J3010; J3370; J7030; J7060; J7626

== ENCOUNTER 2017-07-12 10:36 | Emergency (ER) | payer MEDICARE, BC ==
[~2017-07-12] VITALS: Ht 180.3 cm; Wt 79.0 kg
[~2017-07-12 10:36] MED LIST changes: +ACET-2119 PO; +ALPR-624 PO; -ALPR0.5T8 PO; -APIX5TAB3 PO; +ATOR20TA PO; -ATOR20TA66 PO; +BISA-78 PO; +CALC355O3; +CEFE1VIA11 IV; -CLOP75TA33 PO; +DOCU100C41 PO; -DOCU250C4 PO; -FURO-150 PO; +FURO40TA4 PO; +GABA-530 PO; +GUAI100L55 PO; +LOPE2CAP PO; +METH125V10 IV; -MIRT45TA PO; +MORP100S12 PO; +ONDA4TAB6 PO; +OXYC10TA57 PO; -PANT-47 PO; +PANT20TA3 PO; -POTA10TA15 PO; +POTA20TA10 PO; +SOTA80TA69 PO; +[UNRECOGNIZED DRUG - OTHER] PO
[2017-07-12 10:57] LABS: BASOPHILS % (AUTO) 0.2 % (0-1); EOSINOPHILS # (AUTO) 0.2 X10'3 (0-0.9); EOSINOPHILS % (AUTO) 1.3 % (0-6); HEMATOCRIT 35.7 % (42.0-52.0); LYMPHOCYTES # (AUTO) 0.6 X10'3 (1.1-4.8); LYMPHOCYTES % (AUTO) 3.9 % (21-51); MEAN CORPUSCULAR HEMOGLOBIN 32.2 PG (27.0-31.0); MEAN CORPUSCULAR HGB CONC 33.5 % (33.0-36.5); MEAN CORPUSCULAR VOLUME 95.9 FL (78-98); MEAN PLATELET VOLUME 6.3 FL (7.4-10.4); MONOCYTES # (AUTO) 0.9 X10'3 (0-0.9); MONOCYTES % (AUTO) 5.8 % (2-12); NEUTROPHILS % (AUTO) 88.8 % (42-75); PLATELET COUNT 322 X10'3 (140-440); RED BLOOD COUNT 3.72 X10'6 (4.70-6.10); RED CELL DISTRIBUTION WIDTH 16.4 % (11.5-14.5); WHITE BLOOD COUNT 14.6 X10'3 (4.5-11.0)
[2017-07-12] MEDS ORDERED: ipratropium/albuterol 3ml nebule NEB ONE (11:10)
[2017-07-12] MEDS ORDERED: methylPREDNISolone sod succ 125mg/2ml vial IV ONE (11:10)
[2017-07-12 11:11] LABS: ANION GAP 4 (8-16); CHLORIDE 106 MMOL/L (99-107); GLUCOSE 141 MG/DL (70-104); POTASSIUM 4.3 MMOL/L (3.5-5.1); SODIUM 144 MMOL/L (135-145); TOTAL CARBON DIOXIDE 33.8 MMOL/L (24-32)
[2017-07-12 11:12] LABS: ALANINE AMINOTRANSFERASE 64 U/L (12-78); ALBUMIN 2.7 G/DL (3.4-5.0); ALBUMIN/GLOBULIN RATIO 0.8 (1.1-1.5); ALKALINE PHOSPHATASE 68 IU/L (46-116); ASPARTATE AMINO TRANSFERASE 16 U/L (10-37); BILIRUBIN,TOTAL 0.4 MG/DL (0.1-1.0); BLOOD UREA NITROGEN 38 MG/DL (7-18); BUN/CREATININE RATIO 37.6 (5.4-32.0); CALCIUM 9.3 MG/DL (8.5-10.1); CREATININE 1.01 MG/DL (0.60-1.10); TOTAL PROTEIN 6.1 G/DL (6.4-8.2); eGFR 70 ML/MIN
[2017-07-12 11:14] LABS: INR 0.9 INR; PARTIAL THROMBOPLASTIN TIME 21 SECONDS (22-32); PROTHROMBIN TIME 9.7 SECONDS (9.0-12.0)
[2017-07-12] MEDS ORDERED: cefepime 1GM/NS ADD-VANTAGE 100 ML IV ONE (11:45)
[2017-07-12] MEDS ORDERED: vancomycin/NS 1 GM ADD-VANTAGE 250 ML IV ONE ×2 (11:45→15:00)
[2017-07-12] MEDS ORDERED: azithromycin/NS 500mg/250ml 250 ML IV ONE (11:45)
[2017-07-12 13:31] LABS: ABG BASE EXCESS 2.6 mmol/L (-2.0-3.0); ABG HCO3 26.9 mmol/L (22.0-26.0); ABG PCO2 (T) 40.3 mmHg (35.0-48.0); ABG PH (T) 7.442 (7.350-7.450); ABG PO2 (T) 72.9 mmHg (83-108); ALLEN'S TEST Positive; FCOHb 0.3 % (0.5-1.5); FLOW 2 L/min; FMetHb 0.3 % (0.3-1.12); FO2Hb 93.4 % (94-100); TOTAL HEMOGLOBIN 12.4 G/dl (14.0-18.0)
[2017-07-12] MEDS ORDERED: HYDROcodone/acetaminophen 10/325mg tab PO ONE (13:35)
[2017-07-12] MEDS ORDERED: DOXY100C43 PO (14:34)
[2017-07-12 15:01] VITALS: BP 108/70
== END 2017-07-12 15:05 | disposition home or self-care (01) ==
LOC: ER 10:36
DX: R07.9 Chest pain, unspecified (principal); J44.9 Chronic obstructive pulmonary disease, unspecified; I25.10 Atherosclerotic heart disease of native coronary artery without angina pectoris; I10 Essential (primary) hypertension; E78.00 Pure hypercholesterolemia, unspecified; I48.91 Unspecified atrial fibrillation; I25.2 Old myocardial infarction; G89.29 Other chronic pain; Z98.62 Peripheral vascular angioplasty status; Z90.49 Acquired absence of other specified parts of digestive tract; F17.210 Nicotine dependence, cigarettes, uncomplicated; Z79.899 Other long term (current) drug therapy
CPT/HCPCS: 36415; 36600; 71045; 80053; 82803; 83605; 83880; 84145; 84484; 85018; 85025; 85610; 85730; 87040; 87502; 87503; 93005; 94640; 94760; 96365; 96368; 96375; 99285; J0456; J0692; J2930

== ENCOUNTER 2017-07-14 17:03 | Inpatient (IN) | payer MEDICARE, BC ==
[~2017-07-14] VITALS: Ht 170.2 cm; Wt 93.0 kg
[~2017-07-14 17:03] MED LIST changes: +DOXY100C43 PO
[2017-07-14] MEDS ORDERED: HYDROmorphone inj. 0.5 MG/0.5 ML DISP.SYRIN IV ONE (17:20)
[2017-07-14 18:15] LABS: BASOPHILS % (AUTO) 0 % (0-1); EOSINOPHILS % (AUTO) 0 % (0-6); HEMATOCRIT 39.1 % (42.0-52.0); HEMOGLOBIN 13.1 g/dl (14.0-17.9); LYMPHOCYTES # (AUTO) 0.7 X10'3 (1.1-4.8); LYMPHOCYTES % (AUTO) 2.1 % (21-51); MEAN CORPUSCULAR HEMOGLOBIN 32.4 PG (27.0-31.0); MEAN CORPUSCULAR HGB CONC 33.5 % (33.0-36.5); MEAN CORPUSCULAR VOLUME 96.6 FL (78-98); MEAN PLATELET VOLUME 6.7 FL (7.4-10.4); MONOCYTES # (AUTO) 0.7 X10'3 (0-0.9); MONOCYTES % (AUTO) 2.2 % (2-12); NEUTROPHILS # (AUTO) 30.7 X10'3 (1.8-7.7); NEUTROPHILS % (AUTO) 95.7 % (42-75); PLATELET COUNT 262 X10'3 (140-440); RED BLOOD COUNT 4.05 X10'6 (4.70-6.10); RED CELL DISTRIBUTION WIDTH 16.1 % (11.5-14.5)
[2017-07-14 18:21] LABS: WHITE BLOOD COUNT 32.1 X10'3 (4.5-11.0)
[2017-07-14 18:30] LABS: ALANINE AMINOTRANSFERASE 59 U/L (12-78); ALBUMIN 2.7 G/DL (3.4-5.0); ALBUMIN/GLOBULIN RATIO 0.8 (1.1-1.5); ALKALINE PHOSPHATASE 68 IU/L (46-116); ANION GAP 10 (8-16); ASPARTATE AMINO TRANSFERASE 18 U/L (10-37); BILIRUBIN,TOTAL 0.9 MG/DL (0.1-1.0); BLOOD UREA NITROGEN 38 MG/DL (7-18); BUN/CREATININE RATIO 27.5 (5.4-32.0); CALCIUM 9.2 MG/DL (8.5-10.1); CHLORIDE 102 MMOL/L (99-107); CREATININE 1.38 MG/DL (0.60-1.10); GLUCOSE 121 MG/DL (70-104); LIPASE < 50 U/L (73-393); POTASSIUM 4.9 MMOL/L (3.5-5.1); SODIUM 142 MMOL/L (135-145); TOTAL CARBON DIOXIDE 29.7 MMOL/L (24-32); TOTAL PROTEIN 6.3 G/DL (6.4-8.2); eGFR 49 ML/MIN
[2017-07-14 18:44] LABS: ANISOCYTOSIS 1+; PLATELET ESTIMATE NORMAL; TOTAL CELLS COUNTED 100
[2017-07-14] MEDS ORDERED: metroNIDAZOLE-Flagyl 500mg/NS 100 ML IV STA (19:18)
[2017-07-14] MEDS ORDERED: levoFLOXACIN-Levaquin 500mg/D5 100 ML IV ONE (19:20)
[2017-07-14] MEDS ORDERED: normal saline 1000ml 1,000 ML IV SCH (19:34)
[2017-07-14] MEDS ORDERED: potassium Cl 40MEQ/NS 500ml 500 ML IV PRN ×2 (19:35)
[2017-07-14] MEDS ORDERED: potassium Cl 20 mEq SR tablet PO PRN ×2 (19:35)
[2017-07-14] MEDS ORDERED: normal saline 1000ML IV soln IVB ONE (19:55)
[2017-07-14] MEDS ORDERED: OXYC-145 PO (20:30)
[2017-07-14] MEDS ORDERED: MORP30TA60 PO (20:30)
[2017-07-14] MEDS ORDERED: LACT1CAP65 PO (20:30)
[2017-07-14] MEDS ORDERED: MAG355OR18 PO (20:30)
[2017-07-14] MEDS ORDERED: POLY17PO10 PO (20:30)
[2017-07-14] MEDS ORDERED: MULT-1121 PO (20:30)
[2017-07-14] MEDS ORDERED: PRAV80TA PO (20:30)
[2017-07-14] MEDS ORDERED: MIRT15TA PO (20:30)
[2017-07-14] MEDS ORDERED: PRE5T PO (20:30)
[2017-07-14 20:43] LABS: CLARITY,URINE Clear (Clear); COLOR,URINE Yellow (Yellow); GLUCOSE, URINE Negative (Neg); KETONES,URINE Negative (Neg); LEUKOCYTE ESTERASE ,URINE Negative (Neg); NITRITES, URINE Negative (Neg); OCCULT BLOOD,URINE Trace (Neg); PROTEIN,URINE Trace mg/dl (Neg)
[2017-07-14 21:02] LABS: UA COLLECTION TYPE CLN CATCH MIDSTREAM
[2017-07-14 21:03] LABS: BACTERIA,URINE NONE SEEN /HPF (Neg); RBC,URINE 0-2 /HPF (0-2); SQUAMOUS EPITHELIAL CELL,UR FEW /LPF (FEW); WBC,URINE NONE SEEN /HPF (0-4)
[2017-07-14] MEDS: budesonide 0.5mg/2ml UD nebule IH SCH (21:27)
[2017-07-14] MEDS: ipratropium/albuterol 3ml nebule NEB SCH (22:59)
[2017-07-15] MEDS: ipratropium/albuterol 3ml nebule NEB SCH ×6 (04:29→23:55)
[2017-07-15] MEDS: morphine 4 MG/ML inj SYRINge IV PRN ×3 (04:44→14:42)
[2017-07-15] MEDS: diatr meglu/diatrizoate 30ml oral sol.-(3 dose) bottle PO SCH ×3 (05:14→11:05)
[2017-07-15] MEDS ORDERED: morphine 4 MG/ML inj SYRINge IV ONE (06:00)
[2017-07-15 06:40] LABS: HEMATOCRIT 38.5 % (42.0-52.0); MEAN CORPUSCULAR HEMOGLOBIN 32.2 PG (27.0-31.0); MEAN CORPUSCULAR HGB CONC 33.7 % (33.0-36.5); MEAN CORPUSCULAR VOLUME 95.5 FL (78-98); MEAN PLATELET VOLUME 6.7 FL (7.4-10.4); PLATELET COUNT 232 X10'3 (140-440); RED BLOOD COUNT 4.03 X10'6 (4.70-6.10); RED CELL DISTRIBUTION WIDTH 16.1 % (11.5-14.5)
[2017-07-15 07:02] LABS: ALBUMIN 2.2 G/DL (3.4-5.0); ANION GAP 10 (8-16); BLOOD UREA NITROGEN 38 MG/DL (7-18); BUN/CREATININE RATIO 34.2 (5.4-32.0); CALCIUM 8.8 MG/DL (8.5-10.1); CHLORIDE 106 MMOL/L (99-107); CREATININE 1.11 MG/DL (0.60-1.10); GLUCOSE 82 MG/DL (70-104); MAGNESIUM 2.2 MG/DL (1.5-2.4); PHOSPHORUS 2.4 MG/DL (2.3-4.5); SODIUM 143 MMOL/L (135-145); eGFR 63 ML/MIN
[2017-07-15 07:03] LABS: TOTAL CELLS COUNTED 100
[2017-07-15 07:04] LABS: ANISOCYTOSIS 1+; PLATELET ESTIMATE NORMAL; POLYCHROMASIA FEW
[2017-07-15 07:10] VITALS: BP 109/59
[2017-07-15] MEDS: K and/or MAG REPLACEMENT MC SCH (07:22)
[2017-07-15] MEDS: budesonide 0.5mg/2ml UD nebule IH SCH ×2 (07:54→20:06)
[2017-07-15] MEDS ORDERED: levoFLOXACIN-Levaquin 500mg/D5 100 ML IV SCH (08:00)
[2017-07-15] MEDS: metroNIDAZOLE-Flagyl 500mg/NS 100 ML IV SCH ×4 (08:24→23:30)
[2017-07-15 10:00] VITALS: BP 99/57
[2017-07-15] MEDS: acetaminophen 325mg tablet PO PRN ×2 (10:15→18:49)
[2017-07-15] MEDS ORDERED: acetaminophen 650mg rectal suppository RC PRN (10:40)
[2017-07-15 15:35] LABS: C DIFF ANTIGEN POSITIVE (NEGATIVE); C DIFF SPECIMEN=DIARRHEA? ACCEPTABLE
[2017-07-15 15:37] LABS: C DIFFICILE TOXINS A&B POSITIVE (Neg)
[2017-07-15 18:00] VITALS: BP 97/63
[2017-07-15] MEDS: HYDROmorphone inj. 0.5 MG/0.5 ML DISP.SYRIN IV PRN (18:48)
[2017-07-15 22:00] VITALS: BP 106/60
[2017-07-15] MEDS ORDERED: furosemide 20 MG/2 ML vial IV ONE (22:45)
[2017-07-16] VITALS (28 sets, daily range): BP systolic 96–157; BP diastolic 60–122
[2017-07-16] MEDS ORDERED: amiodarone/D5 450MG/250ML BAG 250 ML IV SCH (01:00)
[2017-07-16] MEDS ORDERED: amiodarone 150mg/dext, iso-os 100 ML IV ONE (01:00)
[2017-07-16] MEDS: HYDROmorphone inj. 0.5 MG/0.5 ML DISP.SYRIN IV PRN ×4 (01:03→23:59)
[2017-07-16] MEDS ORDERED: amiodarone/D5 360MG/200ML BAG 200 ML IV ONE (02:27)
[2017-07-16] MEDS ORDERED: LORazepam 1 MG tablet PO PRN (02:30)
[2017-07-16] MEDS: ondansetron/PF 4mg/2ml inj IV PRN ×3 (02:46→19:52)
[2017-07-16] MEDS: ipratropium/albuterol 3ml nebule NEB SCH ×6 (03:54→23:00)
[2017-07-16 06:09] LABS: BASOPHILS % (AUTO) 0 % (0-1); EOSINOPHILS % (AUTO) 0 % (0-6); HEMATOCRIT 39.9 % (42.0-52.0); HEMOGLOBIN 13.4 g/dl (14.0-17.9); LYMPHOCYTES # (AUTO) 0.4 X10'3 (1.1-4.8); LYMPHOCYTES % (AUTO) 1.5 % (21-51); MEAN CORPUSCULAR HEMOGLOBIN 32.2 PG (27.0-31.0); MEAN CORPUSCULAR HGB CONC 33.6 % (33.0-36.5); MEAN CORPUSCULAR VOLUME 95.8 FL (78-98); MEAN PLATELET VOLUME 7.2 FL (7.4-10.4); MONOCYTES # (AUTO) 0.9 X10'3 (0-0.9); MONOCYTES % (AUTO) 2.9 % (2-12); NEUTROPHILS # (AUTO) 29.2 X10'3 (1.8-7.7); NEUTROPHILS % (AUTO) 95.6 % (42-75); PLATELET COUNT 211 X10'3 (140-440); RED BLOOD COUNT 4.17 X10'6 (4.70-6.10); RED CELL DISTRIBUTION WIDTH 15.9 % (11.5-14.5)
[2017-07-16 06:20] LABS: ALBUMIN 1.9 G/DL (3.4-5.0); ANION GAP 14 (8-16); BLOOD UREA NITROGEN 41 MG/DL (7-18); BUN/CREATININE RATIO 30.8 (5.4-32.0); CALCIUM 8.6 MG/DL (8.5-10.1); CHLORIDE 106 MMOL/L (99-107); CREATININE 1.33 MG/DL (0.60-1.10); GLUCOSE 141 MG/DL (70-104); MAGNESIUM 2.2 MG/DL (1.5-2.4); PHOSPHORUS 3.4 MG/DL (2.3-4.5); POTASSIUM 3.8 MMOL/L (3.5-5.1); SODIUM 143 MMOL/L (135-145); TOTAL CARBON DIOXIDE 23.1 MMOL/L (24-32); eGFR 51 ML/MIN
[2017-07-16 06:23] LABS: WHITE BLOOD COUNT 30.5 X10'3 (4.5-11.0)
[2017-07-16] MEDS: budesonide 0.5mg/2ml UD nebule IH SCH (06:48)
[2017-07-16 07:11] LABS: PLATELET ESTIMATE NORMAL; TOTAL CELLS COUNTED 100
[2017-07-16 07:13] LABS: ANISOCYTOSIS 1+; POIKILOCYTOSIS 1+
[2017-07-16 07:15] LABS: POLYCHROMASIA FEW
[2017-07-16] MEDS: K and/or MAG REPLACEMENT MC SCH (08:00)
[2017-07-16] MEDS ORDERED: furosemide 40mg tablet PO SCH (08:00)
[2017-07-16] MEDS ORDERED: amiodarone/D5 360MG/200ML BAG 250 ML IV SCH (08:32)
[2017-07-16] MEDS: metroNIDAZOLE-Flagyl 500mg/NS 100 ML IV SCH ×3 (08:33→23:59)
[2017-07-16] MEDS: amiodarone/D5 360MG/200ML BAG 200 ML IV SCH ×2 (09:21→19:50)
[2017-07-16] MEDS ORDERED: diltiazem 5mg/ml 5ml inj. IV ONE (12:25)
[2017-07-16] MEDS ORDERED: verapamil 2.5 mg/ml inj IV ONE ×2 (12:35→16:25)
[2017-07-16] MEDS ORDERED: GABA-530 PO (16:27)
[2017-07-16] MEDS ORDERED: GABA-532 PO (16:27)
[2017-07-16] MEDS: LORazepam 2 mg/ml vial IV PRN (16:42)
[2017-07-16] MEDS: diltiazem-NS 100mg/100ml 100 ML IV SCH (19:12)
[2017-07-16] MEDS: vancomycin 125mg/5ml ORAL solution 5ml UD bottle PO SCH (19:52)
[2017-07-16] MEDS: simethicone 80mg chew tab PO PRN (19:52)
[2017-07-16] MEDS: heparin, porcine 5000 units/ml vial SQ SCH (19:52)
[2017-07-17] VITALS (17 sets, daily range): BP systolic 109–138; BP diastolic 65–98
[2017-07-17] MEDS: budesonide 0.5mg/2ml UD nebule IH SCH ×3 (00:17→19:02)
[2017-07-17] MEDS: vancomycin 125mg/5ml ORAL solution 5ml UD bottle PO SCH ×4 (01:51→19:14)
[2017-07-17] MEDS: ondansetron/PF 4mg/2ml inj IV PRN ×3 (01:57→19:13)
[2017-07-17] MEDS: diltiazem-NS 100mg/100ml 100 ML IV SCH ×3 (03:59→18:48)
[2017-07-17] MEDS: HYDROmorphone inj. 0.5 MG/0.5 ML DISP.SYRIN IV PRN ×3 (04:14→22:46)
[2017-07-17] MEDS: ipratropium/albuterol 3ml nebule NEB SCH ×6 (04:51→23:09)
[2017-07-17 06:00] LABS: BASOPHILS % (AUTO) 0 % (0-1); EOSINOPHILS % (AUTO) 0 % (0-6); HEMATOCRIT 40.6 % (42.0-52.0); HEMOGLOBIN 13.7 g/dl (14.0-17.9); LYMPHOCYTES # (AUTO) 0.4 X10'3 (1.1-4.8); LYMPHOCYTES % (AUTO) 1.2 % (21-51); MEAN CORPUSCULAR HEMOGLOBIN 32.3 PG (27.0-31.0); MEAN CORPUSCULAR HGB CONC 33.6 % (33.0-36.5); MEAN CORPUSCULAR VOLUME 96.1 FL (78-98); MEAN PLATELET VOLUME 7.9 FL (7.4-10.4); MONOCYTES % (AUTO) 2.7 % (2-12); NEUTROPHILS # (AUTO) 34.4 X10'3 (1.8-7.7); NEUTROPHILS % (AUTO) 96.1 % (42-75); PLATELET COUNT 220 X10'3 (140-440); RED BLOOD COUNT 4.23 X10'6 (4.70-6.10); RED CELL DISTRIBUTION WIDTH 16.2 % (11.5-14.5)
[2017-07-17 06:11] LABS: ALBUMIN 1.9 G/DL (3.4-5.0); ANION GAP 14 (8-16); BLOOD UREA NITROGEN 52 MG/DL (7-18); BUN/CREATININE RATIO 28.3 (5.4-32.0); CALCIUM 8.7 MG/DL (8.5-10.1); CHLORIDE 104 MMOL/L (99-107); CREATININE 1.84 MG/DL (0.60-1.10); GLUCOSE 154 MG/DL (70-104); MAGNESIUM 2.3 MG/DL (1.5-2.4); PHOSPHORUS 3.8 MG/DL (2.3-4.5); POTASSIUM 3.8 MMOL/L (3.5-5.1); SODIUM 141 MMOL/L (135-145); TOTAL CARBON DIOXIDE 23.2 MMOL/L (24-32); eGFR 35 ML/MIN
[2017-07-17 06:37] LABS: WHITE BLOOD COUNT 35.8 X10'3 (4.5-11.0)
[2017-07-17] MEDS: metroNIDAZOLE-Flagyl 500mg/NS 100 ML IV SCH ×3 (07:36→23:56)
[2017-07-17] MEDS: heparin, porcine 5000 units/ml vial SQ SCH ×2 (07:37→19:13)
[2017-07-17 07:56] LABS: ANISOCYTOSIS 1+; BANDS% (MANUAL) 6 % (0-10); MONOCYTES % (MANUAL) 9 % (2-12); NEUTROPHILS % (MANUAL) 85 % (42-75); PLATELET ESTIMATE NORMAL; TOTAL CELLS COUNTED 100
[2017-07-17 07:57] LABS: BURR CELLS FEW; ELLIPTOCYTES FEW
[2017-07-17] MEDS: K and/or MAG REPLACEMENT MC SCH (08:00)
[2017-07-17] MEDS: amiodarone/D5 360MG/200ML BAG 200 ML IV SCH ×2 (08:02→18:48)
[2017-07-17] MEDS: dextrose 5%-normal saline 1,000 ML IV SCH ×2 (09:54→18:10)
[2017-07-17] MEDS: LACTOSE-FREE FOOD (BOOST BREEZE) 237ML PO SCH ×2 (13:00→18:00)
[2017-07-17] MEDS: SODIUM CHLORIDE RC SCH ×2 (15:30→19:14)
[2017-07-17] MEDS: VANCOMYCIN 250 MG RC SCH ×2 (15:30→19:14)
[2017-07-17] MEDS: lactobacillus rhamnosus 10,000 MMU CELLS/CAPSULE PO SCH (19:14)
[2017-07-18] VITALS (23 sets, daily range): BP systolic 101–143; BP diastolic 52–87
[2017-07-18] MEDS ORDERED: morphine ORAL 5MG/0.25 ML (Conc. morphine) oral syringe PO PRN ×2 (01:05→01:40)
[2017-07-18] MEDS: vancomycin 125mg/5ml ORAL solution 5ml UD bottle PO SCH ×4 (01:14→20:24)
[2017-07-18] MEDS: ondansetron/PF 4mg/2ml inj IV PRN ×4 (01:14→21:52)
[2017-07-18] MEDS: simethicone 80mg chew tab PO PRN (01:14)
[2017-07-18] MEDS: VANCOMYCIN 250 MG RC SCH ×4 (01:15→20:24)
[2017-07-18] MEDS: SODIUM CHLORIDE RC SCH ×4 (01:15→20:24)
[2017-07-18] MEDS: HYDROmorphone inj. 0.5 MG/0.5 ML DISP.SYRIN IV PRN ×5 (02:47→22:48)
[2017-07-18] MEDS: ipratropium/albuterol 3ml nebule NEB SCH ×6 (02:54→23:40)
[2017-07-18] MEDS: dextrose 5%-normal saline 1,000 ML IV SCH ×2 (04:10→10:09)
[2017-07-18] MEDS: diltiazem-NS 100mg/100ml 100 ML IV SCH ×3 (04:44→18:50)
[2017-07-18 06:05] LABS: BASOPHILS % (AUTO) 0 % (0-1); EOSINOPHILS # (AUTO) 0.2 X10'3 (0-0.9); EOSINOPHILS % (AUTO) 0.5 % (0-6); HEMATOCRIT 39.2 % (42.0-52.0); HEMOGLOBIN 13.1 g/dl (14.0-17.9); LYMPHOCYTES # (AUTO) 0.4 X10'3 (1.1-4.8); LYMPHOCYTES % (AUTO) 1.3 % (21-51); MEAN CORPUSCULAR HEMOGLOBIN 31.9 PG (27.0-31.0); MEAN CORPUSCULAR HGB CONC 33.4 % (33.0-36.5); MEAN CORPUSCULAR VOLUME 95.4 FL (78-98); MONOCYTES # (AUTO) 1.4 X10'3 (0-0.9); NEUTROPHILS # (AUTO) 31.8 X10'3 (1.8-7.7); NEUTROPHILS % (AUTO) 94.2 % (42-75); PLATELET COUNT 208 X10'3 (140-440); RED BLOOD COUNT 4.11 X10'6 (4.70-6.10); RED CELL DISTRIBUTION WIDTH 15.7 % (11.5-14.5)
[2017-07-18 06:17] LABS: ALBUMIN 1.8 G/DL (3.4-5.0); ANION GAP 14 (8-16); BLOOD UREA NITROGEN 52 MG/DL (7-18); BUN/CREATININE RATIO 27.8 (5.4-32.0); CALCIUM 8.3 MG/DL (8.5-10.1); CHLORIDE 105 MMOL/L (99-107); CREATININE 1.87 MG/DL (0.60-1.10); GLUCOSE 210 MG/DL (70-104); MAGNESIUM 2.2 MG/DL (1.5-2.4); PHOSPHORUS 3.1 MG/DL (2.3-4.5); POTASSIUM 3.1 MMOL/L (3.5-5.1); SODIUM 139 MMOL/L (135-145); TOTAL CARBON DIOXIDE 20.5 MMOL/L (24-32); eGFR 34 ML/MIN
[2017-07-18 06:24] LABS: WHITE BLOOD COUNT 33.8 X10'3 (4.5-11.0)
[2017-07-18 06:56] LABS: BANDS% (MANUAL) 10 % (0-10); LYMPHOCYTES % (MANUAL) 1 % (21-51); MONOCYTES % (MANUAL) 5 % (2-12); NEUTROPHILS % (MANUAL) 83 % (42-75); TOTAL CELLS COUNTED 100
[2017-07-18 06:57] LABS: ANISOCYTOSIS 1+; PLATELET ESTIMATE NORMAL; PROMYELOCYTES % (MANUAL) 1 % (0-0)
[2017-07-18] MEDS: amiodarone/D5 360MG/200ML BAG 200 ML IV SCH ×2 (07:04→18:30)
[2017-07-18] MEDS ORDERED: LACTOBACILLUS RHAMNOSUS GG 15 billion unit sprinkle caps PO SCH (07:30)
[2017-07-18] MEDS: LACTOSE-FREE FOOD (BOOST BREEZE) 237ML PO SCH ×3 (08:00→18:00)
[2017-07-18] MEDS: heparin, porcine 5000 units/ml vial SQ SCH ×2 (08:01→20:24)
[2017-07-18] MEDS: lactobacillus rhamnosus 10,000 MMU CELLS/CAPSULE PO SCH ×2 (08:01→20:23)
[2017-07-18] MEDS: metroNIDAZOLE-Flagyl 500mg/NS 100 ML IV SCH ×2 (08:02→16:08)
[2017-07-18] MEDS: budesonide 0.5mg/2ml UD nebule IH SCH ×2 (08:04→23:41)
[2017-07-18] MEDS: K and/or MAG REPLACEMENT MC SCH (08:53)
[2017-07-18] MEDS: morphine 10mg/0.5ml (conc. morphine) oral syringe PO PRN ×3 (10:05→20:45)
[2017-07-18] MEDS ORDERED: potassium Cl 20 mEq SR tablet PO PRN ×2 (10:45)
[2017-07-18] MEDS ORDERED: magnesium Cl slow-release 64mg tablet PO PRN (10:45)
[2017-07-18] MEDS ORDERED: potassium Cl 40MEQ/NS 500ml 500 ML IV PRN ×2 (11:30)
[2017-07-18] MEDS ORDERED: proMETHazine 25mg rectal suppository RC PRN (19:55)
[2017-07-19] VITALS (14 sets, daily range): BP systolic 103–136; BP diastolic 58–86
[2017-07-19] MEDS: dextrose 5%-normal saline 1,000 ML IV SCH ×3 (00:10→20:55)
[2017-07-19] MEDS: diltiazem-NS 100mg/100ml 100 ML IV SCH ×3 (00:49→17:09)
[2017-07-19] MEDS: metroNIDAZOLE-Flagyl 500mg/NS 100 ML IV SCH ×3 (00:49→16:00)
[2017-07-19] MEDS: vancomycin 125mg/5ml ORAL solution 5ml UD bottle PO SCH ×4 (01:19→20:54)
[2017-07-19] MEDS: LORazepam 2 mg/ml vial IV PRN (01:29)
[2017-07-19] MEDS: SODIUM CHLORIDE RC SCH ×4 (02:40→20:55)
[2017-07-19] MEDS: VANCOMYCIN 250 MG RC SCH ×4 (02:40→20:55)
[2017-07-19] MEDS: ipratropium/albuterol 3ml nebule NEB SCH ×6 (03:17→23:00)
[2017-07-19] MEDS: morphine 4 MG/ML inj SYRINge IV PRN ×4 (04:19→21:33)
[2017-07-19] MEDS: amiodarone/D5 360MG/200ML BAG 200 ML IV SCH ×2 (04:19→16:46)
[2017-07-19 05:47] LABS: BASOPHILS % (AUTO) 0.1 % (0-1); EOSINOPHILS % (AUTO) 0 % (0-6); HEMATOCRIT 37.5 % (42.0-52.0); HEMOGLOBIN 12.9 g/dl (14.0-17.9); LYMPHOCYTES # (AUTO) 0.5 X10'3 (1.1-4.8); LYMPHOCYTES % (AUTO) 1.7 % (21-51); MEAN CORPUSCULAR HEMOGLOBIN 31.9 PG (27.0-31.0); MEAN CORPUSCULAR HGB CONC 34.3 % (33.0-36.5); MEAN PLATELET VOLUME 7.7 FL (7.4-10.4); MONOCYTES # (AUTO) 1.7 X10'3 (0-0.9); NEUTROPHILS # (AUTO) 26.7 X10'3 (1.8-7.7); NEUTROPHILS % (AUTO) 92.2 % (42-75); PLATELET COUNT 188 X10'3 (140-440); RED BLOOD COUNT 4.03 X10'6 (4.70-6.10); RED CELL DISTRIBUTION WIDTH 16.1 % (11.5-14.5)
[2017-07-19 06:29] LABS: ALBUMIN 1.9 G/DL (3.4-5.0); ANION GAP 14 (8-16); BLOOD UREA NITROGEN 47 MG/DL (7-18); BUN/CREATININE RATIO 24.2 (5.4-32.0); CALCIUM 8.5 MG/DL (8.5-10.1); CHLORIDE 107 MMOL/L (99-107); CREATININE 1.94 MG/DL (0.60-1.10); GLUCOSE 132 MG/DL (70-104); MAGNESIUM 2.2 MG/DL (1.5-2.4); PHOSPHORUS 2.4 MG/DL (2.3-4.5); POTASSIUM 3.5 MMOL/L (3.5-5.1); PREALBUMIN 12.6 MG/DL (19-36); SODIUM 141 MMOL/L (135-145); TOTAL CARBON DIOXIDE 19.9 MMOL/L (24-32); eGFR 33 ML/MIN
[2017-07-19 07:50] LABS: BANDS% (MANUAL) 6 % (0-10); MONOCYTES % (MANUAL) 6 % (2-12); NEUTROPHILS % (MANUAL) 88 % (42-75); PLATELET ESTIMATE NORMAL; TOTAL CELLS COUNTED 100
[2017-07-19 07:51] LABS: ANISOCYTOSIS 1+
[2017-07-19] MEDS: budesonide 0.5mg/2ml UD nebule IH SCH ×2 (08:00→19:10)
[2017-07-19] MEDS: lactobacillus rhamnosus 10,000 MMU CELLS/CAPSULE PO SCH ×2 (08:00→20:54)
[2017-07-19] MEDS: K and/or MAG REPLACEMENT MC SCH (08:00)
[2017-07-19] MEDS: LACTOSE-FREE FOOD (BOOST BREEZE) 237ML PO SCH ×3 (08:00→18:00)
[2017-07-19] MEDS: heparin, porcine 5000 units/ml vial SQ SCH ×2 (09:58→20:55)
[2017-07-19] MEDS ORDERED: morphine 4 MG/ML inj SYRINge IV PRN (19:00)
[2017-07-19] MEDS: sotalol 80mg tablet CORPAK SCH (20:54)
[2017-07-20] VITALS (11 sets, daily range): BP systolic 89–114; BP diastolic 47–68
[2017-07-20] MEDS: morphine 4 MG/ML inj SYRINge IV SCH ×3 (00:01→20:27)
[2017-07-20] MEDS: metroNIDAZOLE-Flagyl 500mg/NS 100 ML IV SCH ×2 (00:01→08:00)
[2017-07-20] MEDS: SODIUM CHLORIDE RC SCH ×3 (01:51→14:00)
[2017-07-20] MEDS: VANCOMYCIN 250 MG RC SCH ×3 (01:51→14:00)
[2017-07-20] MEDS: vancomycin 125mg/5ml ORAL solution 5ml UD bottle PO SCH ×3 (01:51→14:00)
[2017-07-20] MEDS: ipratropium/albuterol 3ml nebule NEB SCH ×4 (02:53→14:30)
[2017-07-20] MEDS: amiodarone/D5 360MG/200ML BAG 200 ML IV SCH (05:41)
[2017-07-20] MEDS: dextrose 5%-normal saline 1,000 ML IV SCH (05:51)
[2017-07-20] MEDS: morphine 4 MG/ML inj SYRINge IV PRN ×4 (05:53→18:27)
[2017-07-20] MEDS: LACTOSE-FREE FOOD (BOOST BREEZE) 237ML PO SCH ×2 (08:00→11:50)
[2017-07-20] MEDS: sotalol 80mg tablet CORPAK SCH ×2 (08:00→19:10)
[2017-07-20] MEDS: heparin, porcine 5000 units/ml vial SQ SCH (08:00)
[2017-07-20] MEDS: lactobacillus rhamnosus 10,000 MMU CELLS/CAPSULE PO SCH (08:00)
[2017-07-20] MEDS: K and/or MAG REPLACEMENT MC SCH (08:00)
[2017-07-20] MEDS: budesonide 0.5mg/2ml UD nebule IH SCH (08:00)
[2017-07-20] MEDS ORDERED: acetaminophen 325mg tablet PO PRN (13:40)
[2017-07-20] MEDS ORDERED: morphine 10mg/0.5ml (conc. morphine) oral syringe PO PRN (13:40)
[2017-07-20] MEDS ORDERED: LORazepam 2 mg/ml vial IV PRN (13:40)
[2017-07-20] MEDS: diltiazem 30mg tablet PO SCH ×2 (14:00→19:10)
[2017-07-21] MEDS: morphine 4 MG/ML inj SYRINge IV SCH (00:43)
[2017-07-21] MEDS: diltiazem 30mg tablet PO SCH ×4 (02:00→20:00)
[2017-07-21 02:30] VITALS: BP 117/21
[2017-07-21] MEDS: morphine 4 MG/ML inj SYRINge IV PRN (05:32)
[2017-07-21 06:00] VITALS: BP 125/73
[2017-07-21] MEDS: morphine 10mg/ml inj. IV PRN ×4 (07:09→17:55)
[2017-07-21] MEDS: sotalol 80mg tablet CORPAK SCH ×2 (08:00→20:00)
[2017-07-21] MEDS: K and/or MAG REPLACEMENT MC SCH (08:00)
[2017-07-21 19:00] VITALS: BP 122/69
[2017-07-22] MEDS: diltiazem 30mg tablet PO SCH ×2 (02:00→08:00)
[2017-07-22] MEDS: morphine 10mg/ml inj. IV PRN ×4 (03:18→15:46)
[2017-07-22 06:00] VITALS: BP 120/66
[2017-07-22] MEDS: sotalol 80mg tablet CORPAK SCH (08:00)
[2017-07-22] MEDS: K and/or MAG REPLACEMENT MC SCH (08:00)
[2017-07-22] MEDS ORDERED: ondansetron 4mg rapidly disintigrating tab PO PRN (11:35)
[2017-07-22] MEDS ORDERED: LORazepam 1 MG tablet PO PRN (11:40)
[2017-07-22] MEDS ORDERED: atropine sulfate 1% ophthalmic drops SL PRN (11:40)
[2017-07-22] MEDS: morphine 10mg/0.5ml (conc. morphine) oral syringe PO PRN ×3 (13:34→21:08)
[2017-07-22 23:00] VITALS: BP 103/59
[2017-07-23] MEDS: morphine 10mg/0.5ml (conc. morphine) oral syringe PO PRN ×7 (00:17→21:56)
[2017-07-23] MEDS: ondansetron/PF 4mg/2ml inj IV PRN ×2 (05:34→13:17)
[2017-07-23 15:00] VITALS: BP 129/73
[2017-07-23] MEDS: LORazepam 2 mg/ml vial IV PRN (17:38)
[2017-07-23] MEDS: ipratropium/albuterol 3ml nebule NEB PRN (17:38)
[2017-07-23 22:00] VITALS: BP 92/57
[2017-07-24] MEDS: morphine 10mg/0.5ml (conc. morphine) oral syringe PO PRN ×3 (01:09→12:10)
[2017-07-24] MEDS: ipratropium/albuterol 3ml nebule NEB PRN ×2 (08:51→13:52)
[2017-07-24 11:00] VITALS: BP 102/73
[2017-07-24] MEDS: ondansetron/PF 4mg/2ml inj IV PRN (12:41)
[2017-07-24] MEDS ORDERED: PHE25R RC (14:13)
[2017-07-24] MEDS ORDERED: ONDA4TAB12 PO (14:13)
[2017-07-24] MEDS ORDERED: ATRO2DRO4 SL (14:13)
[2017-07-24] MEDS ORDERED: MORP100S12 PO (14:13)
== END 2017-07-24 14:37 | disposition hospice, home (50) | DRG 871 ==
LOC: ER 17:03 → ED HOLD 19:34 → ORTHO 4S 07-15 07:14 → PCU 3S 07-16 01:43
PROVIDERS: ADMIT Family Medicine; ATTEND Family Medicine
DX: A41.9 Sepsis, unspecified organism (principal); E43 Unspecified severe protein-calorie malnutrition; N17.9 Acute kidney failure, unspecified; A04.71 Enterocolitis due to Clostridium difficile, recurrent; I48.91 Unspecified atrial fibrillation; J44.9 Chronic obstructive pulmonary disease, unspecified; I13.0 Hypertensive heart and chronic kidney disease with heart failure and stage 1 through stage 4 chronic kidney disease, or unspecified chronic kidney disease; I50.9 Heart failure, unspecified; K22.2 Esophageal obstruction; F32.9 Major depressive disorder, single episode, unspecified; E78.5 Hyperlipidemia, unspecified; R45.1 Restlessness and agitation; F41.9 Anxiety disorder, unspecified; G89.29 Other chronic pain; M54.9 Dorsalgia, unspecified; I25.10 Atherosclerotic heart disease of native coronary artery without angina pectoris; N18.9 Chronic kidney disease, unspecified; N40.0 Benign prostatic hyperplasia without lower urinary tract symptoms; Z51.5 Encounter for palliative care; Z66 Do not resuscitate; Z79.899 Other long term (current) drug therapy; Z87.01 Personal history of pneumonia (recurrent); Z87.891 Personal history of nicotine dependence; Z86.73 Personal history of transient ischemic attack (TIA), and cerebral infarction without residual deficits; Z82.49 Family history of ischemic heart disease and other diseases of the circulatory system; Z83.3 Family history of diabetes mellitus; Z82.3 Family history of stroke; Z68.31 Body mass index [BMI] 31.0-31.9, adult
CPT/HCPCS: 36415; 71045; 74018; 74176; 80048; 80053; 81001; 83605; 83690; 83735; 84100; 84132; 84134; 84145; 85025; 87040; 87070; 87324; 87449; 94640; 94668; 94760; 96374; 97162; 97530; 99285; A4315; A4353; A6212; A6213; J0282; J1170; J1644; J1940; J1956; J2060; J2270; J2405; J3370; J3480; J3490; J7030; J7042; J7120; J7626; Q9963